=== PATIENT | male | born 2000 | race Caucasian/White ===

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

== ENCOUNTER 2021-03-31 09:19 | Observation (INO) | payer OTHER ==
--- NOTE | 2021-03-31 09:49 | ED ---
Chest Pain HPI - General Chief Complaint: Chest Pain Stated Complaint: Chest Pain/Recheck Time Seen by Provider: 03/31/21 09:37 Source: patient, RN notes reviewed Mode of arrival: ambulatory Limitations: no limitations - History of Present Illness Initial Comments: Patient is a 20-year-old male presented to the ER for chief complaint of chest pain. Patient states pain started yesterday at 2:30 while sitting at work. Patient reports pain is constant and feels like a stabbing pain that is worsened by coughing. Patient denies any pain radiation up or down the arms or to back. Patient reports 5 month old history of spontaneous pneumothorax. Patient is well-appearing and in mild discomfort, with stable vitals. - Related Data Previous Rx's Medication Instructions Recorded Acetaminophen Tab [Tylenol] 650 mg PO Q6HR PRN tab 10/26/20 Allergies Allergy/AdvReac Type Severity Reaction Status Date / Time No Known Allergies Allergy Verified 03/31/21 09:23 Review of Systems ROS Statement: Those systems with pertinent positive or pertinent negative responses have been documented in the HPI. ROS Other: All systems not noted in ROS Statement are negative. Past Medical History Past Medical History: No Reported History History of Any Multi-Drug Resistant Organisms: None Reported Past Surgical History: Appendectomy Past Anesthesia/Blood Transfusion Reactions: No Reported Reaction Past Psychological History: No Psychological Hx Reported Smoking Status: Former smoker, Vaper Past Alcohol Use History: None Reported Past Drug Use History: None Reported, Marijuana - Past Family History Mother Family Medical History: Unable to Obtain General Exam Limitations: no limitations General appearance: alert, in no apparent distress Head exam: Present: atraumatic, normocephalic, normal inspection Eye exam: Present: normal appearance, PERRL, EOMI. Absent: scleral icterus, conjunctival injection, periorbital swelling ENT exam: Present: normal exam, mucous membranes moist Neck exam: Present: normal inspection. Absent: tenderness, meningismus, lymphadenopathy Respiratory exam: Present: normal lung sounds bilaterally. Absent: respiratory distress, wheezes, rales, rhonchi, stridor Cardiovascular Exam: Present: regular rate, normal rhythm, normal heart sounds GI/Abdominal exam: Present: soft, normal bowel sounds. Absent: distended, tenderness, guarding, rebound, rigid Rectal exam: Present: deferred Extremities exam: Present: normal inspection, full ROM, normal capillary refill. Absent: tenderness, pedal edema, joint swelling, calf tenderness Back exam: Present: normal inspection Neurological exam: Present: alert, oriented X3, CN II-XII intact Psychiatric exam: Present: normal affect, normal mood Skin exam: Present: warm, dry, intact, normal color. Absent: rash Course Vital Signs 03/31/21 09:25 Temperature 98 F Pulse Rate 78 Respiratory 18 Rate Blood Pressure 132/82 O2 Sat by Pulse 96 Oximetry Chest Pain MDM - MDM X-ray shows evidence of pneumothorax I did discuss case with the radiologist, CT was obtained shows pneumothorax. Patient will be admitted for cardiothoracic surgery as she seen in the past. Disposition Clinical Impression: Spontaneous pneumothorax Disposition: ADMITTED IP TO THIS HOSP Condition: Fair Referrals: Rochelle Leslie MD [Primary Care Provider] - 1-2 days
--- NOTE | 2021-03-31 10:39 | XR ---
EXAMINATION TYPE: XR chest 2V DATE OF EXAM: 03/31/2021 COMPARISON: 10/29/2020 INDICATION: Pain TECHNIQUE: Frontal and lateral views of the chest are obtained. FINDINGS: The heart size is normal. The pulmonary vasculature is normal. The lungs are clear. No recurrent pneumothorax is evident. IMPRESSION: 1. No acute pulmonary process.
[2021-03-31] MEDS ORDERED: NALOXONE 0.4 MG/ML 1 ML VIAL IV PRN (11:05)
--- NOTE | 2021-03-31 11:14 | CT ---
EXAMINATION TYPE: CT chest wo con DATE OF EXAM: 03/31/2021 COMPARISON: 10/24/2020 HISTORY: abnormal CXR, pneumothorax, CT DLP: 310.3 mGycm, Automated exposure control for dose reduction was used. CONTRAST: Performed injected with 0 mL of Isovue 300. TECHNIQUE: Axial images were obtained at 5 mm thick sections. Reconstructed images are reviewed on Xetal computer in the coronal plane. FINDINGS: Portion of the thyroid visualized is normal. No suspicious lung nodules or focal infiltrates are present. There is a small pneumothorax present. Small crescent can be identified adjacent to the diaphragm lat eral at the right lung base. Additionally, some minimal right apical pneumothorax is evident. No enlarged mediastinal or hilar adenopathy is evident. The ascending aorta diameter at the level o f the main pulmonary artery is 2.8 cm. The main pulmonary artery diameter at the bifurcation is 2.[address] sections are obtained through the upper abdomen. Abdomen is essentially unremarkable. IMPRESSIONS: 1. Very minimal pneumothorax estimated at less than 10%. This resides at both the right lung base and right apex.
--- NOTE | 2021-03-31 13:51 | P.GSCN ---
History of Present Illness Consult date: 03/31/21 Reason for Consult: right spontaneous pneumothorax Requesting physician: Donald Harvey History of present illness: This is a 20-year-old active young man who follows on an outpatient basis with Dr. Leslie for primary care. He has a previous medical history of right spontaneous pneumothorax s/p thoravent placement in 10/2020, previous vaping use and continued occasional tobacco use, tonsillectomy, appendectomy, and occasional marijuana use. We evaluated and treated this young man in October with monitoring and subsequent removal of thoravent. At that time we discussed the potential for thracoscopic stapling of any air leak and mechanical pleurodesis if he should have a return of his pneumothorax due to the potential for the pneumothorax to keep recurring. He has been recovering at home without incident since until yesterday when he was about to leave work and had right sided chest pain with inspiration causing mild shortness of breath. He states it wasn't the same feeling as when he had his previous pneumothorax but he was concerned so he presented to [facility] Emergency room for evaluation and treatment. Chest x-ray demonstrated small less than 20% right-sided pneumothorax. CT of the chest demonstrated less than 10% apical and basilar pneumothorax. The patient is currently in no distress, oxygenating in the high 90s on room air. Consultation was placed to cardiothoracic surgery for recommendations as the patient is well known to our services. Review of Systems ROS was completed and was negative except as noted. - Respiratory Reports as per HPI, Reports pain on inspiration Past Medical History Additional Past Medical History / Comment(s): spontaneous right sided pneumothorax 10/2020 History of Any Multi-Drug Resistant Organisms: None Reported Past Surgical History: Appendectomy Past Anesthesia/Blood Transfusion Reactions: No Reported Reaction Past Psychological History: No Psychological Hx Reported Smoking Status: Current some day smoker, Vaper Past Alcohol Use History: None Reported Past Drug Use History: None Reported, Marijuana Additional History: quit vaping, admits to still having the occasional cigarette - Past Family History Mother Family Medical History: Unable to Obtain Medications and Allergies Home Medications Medication Instructions Recorded Confirmed Type Multivitamins, Thera [Multivitamin 1 tab PO DAILY 03/31/21 03/31/21 History (formulary)] Allergies Allergy/AdvReac Type Severity Reaction Status Date / Time No Known Allergies Allergy Verified 03/31/21 11:08 Surgical - Exam Vital Signs Temp Pulse Resp BP Pulse Ox 98 F 78 18 132/82 96 03/31/21 09:25 03/31/21 09:25 03/31/21 09:25 03/31/21 09:25 03/31/21 09:25 CONSTITUTIONAL: Awake and alert, appears comfortable, cooperative, well- developed, well-nourished, some pain with coughing, no acute distress EYES: Pupils equal, round, reactive to light, normal ocular movement ENT: Moist mucous membranes without oral lesions present NECK: No masses, no bruits, trachea midline RESPIRATORY: Lungs sounds clear to auscultation bilaterally. Respirations even, nonlabored. Currently on room air with oxygen saturation 98%. No chest wall deformities. No clubbing or cyanosis present. CARDIOVASCULAR: S1, S2 present. Regular rate and rhythm. Palpable peripheral pulses bilaterally. No edema present. No calf pain or tenderness noted. GASTROINTESTINAL: Abdomen soft, nontender, nondistended without masses or organomegaly noted. There is no rebound or guarding present. Active bowel sounds present 4 quadrants. GENITOURINARY: Deferred INTEGUMENTARY: Skin is warm and dry with evidence of good perfusion. NEUROLOGIC: Cranial nerves II through XII intact, normal coordination, no obvious motor or sensory deficits, speech is normal MUSKULOSKELETAL: Able to move all extremities, strength equal bilaterally, normal posture PSYCHIATRIC: Alert and oriented to person place and time, appropriate affect, intact judgment and insight Results - Imaging Chest x-ray: report reviewed, image reviewed CT scan - chest: report reviewed, image reviewed Assessment and Plan Assessment: 1. Spontaneous right-sided pneumothorax, recurrence vs. lack of complete resolution from 10/2020 2. Occasional cigarette use 3. Previous vaping use 4. Occasional marijuana use Plan: The patient was seen and examined at bedside in the ER with Dr. Dolan. Chart/diagnostics reviewed, films were reviewed with Dr. Dolan. The patient does complain of some pain with deep inspiration and cough, but he is in no distress and oxygenating well on room air. Incentive spirometry will be ordered and encouraged. The evolution of spontaneous pneumothorax was again discussed with the patient, discussed after primary occurrence patient has increased risk for second occurrence, but it is unclear if this is a recurrence vs. incomplete healing of the original occurrence. We will obtain follow up CXR in the [facility], further decision to be made regarding treatment, we did discuss surgery but left the decision to the patient. The patient was encouraged to stop smoking completely. Pain control with current medication regimen. Patient should increase activity, ambulate as tolerated. More recommendations to follow. Thank you for this consult. We will continue to follow. Time with Patient: Greater than 30
--- NOTE | 2021-03-31 14:04 | P.HPIM ---
History of Present Illness This is a pleasant 20 years old male with past medical history of spontaneous right sided pneumothorax 10/2020 Presents with chest pain of the right lower chest, nonradiating started last evening about 8/10 for like sharp with little dry cough but no dyspnea or phlegm He admits smoking many months ago but stopped now, no alcohol drinking or illicit tracts as per patient He denies any GI or urinary complaints. No dizziness or palpitation Vitals are stable and he is saturating 96% on room air No labs done Coronary over nondetected Chest x-ray: CT of the chest very minimal pneumothorax estimated at less than 10%. This resides at both the right lung base and right affix EKG showing normal sinus rhythm at 70 bpm with no significant ST-T changes Review of Systems CONSTITUTIONAL: No fever, no malaise, no fatigue. HEENT: No recent visual problems or hearing problems. Denied any sore throat. CARDIOVASCULAR: No orthopnea, PND, no palpitations, no syncope. PULMONARY: No shortness of breath, no cough, no hemoptysis. GASTROINTESTINAL: No diarrhea, no nausea, no vomiting, no abdominal pain. Normoactive bowel sounds. NEUROLOGICAL: No headaches, no weakness, no numbness. HEMATOLOGICAL: Denies any bleeding or petechiae. GENITOURINARY: Denies any burning micturition, frequency, or urgency. MUSCULOSKELETAL/RHEUMATOLOGICAL: Denies any joint pain, swelling, or any muscle pain. ENDOCRINE: Denies any polyuria or polydipsia. Past Medical History Past Medical History: No Reported History Additional Past Medical History / Comment(s): spontaneous right sided pneumothorax 10/2020 History of Any Multi-Drug Resistant Organisms: None Reported Past Surgical History: Appendectomy Past Anesthesia/Blood Transfusion Reactions: No Reported Reaction Past Psychological History: No Psychological Hx Reported Smoking Status: Current some day smoker, Vaper Past Alcohol Use History: None Reported Past Drug Use History: None Reported, Marijuana - Past Family History Mother Family Medical History: Unable to Obtain Medications and Allergies Home Medications Medication Instructions Recorded Confirmed Type Multivitamins, Thera [Multivitamin 1 tab PO DAILY 03/31/21 03/31/21 History (formulary)] Allergies Allergy/AdvReac Type Severity Reaction Status Date / Time No Known Allergies Allergy Verified 03/31/21 11:08 Physical Exam Vitals: Vital Signs Temp Pulse Resp BP Pulse Ox 03/31/21 11:40 70 16 149/75 98 03/31/21 09:25 98 F 78 18 132/82 96 Intake and Output 03/30/21 03/31/21 03/31/21 22:59 06:59 14:59 Other: Weight 71.214 kg GENERAL: The patient is alert and oriented x3, not in any acute distress. Well developed, well nourished. HEENT: Pupils are round and equally reacting to light. EOMI. No scleral icterus. No conjunctival pallor. Normocephalic, atraumatic. No pharyngeal erythema. No thyromegaly. CARDIOVASCULAR: S1 and S2 present. No murmurs, rubs, or gallops. PULMONARY: Chest is clear to auscultation, no wheezing or crackles. ABDOMEN: Soft, nontender, nondistended, normoactive bowel sounds. No palpable organomegaly. MUSCULOSKELETAL: No joint swelling or deformity. EXTREMITIES: No cyanosis, clubbing, or pedal edema. NEUROLOGICAL: Gross neurological examination did not reveal any focal deficits. SKIN: No rashes. No petechiae Assessment and Plan Assessment: Recurrent versus incomplete resolution of right apical and base spontaneous right sided pneumothorax , Estimated less than 10% Plan: This is a pleasant 20 years old male who presents with recurrent versus incomplete resolution of right pneumothorax cardiothoracic surgery team on the case for recommended to monitor with repeat chest x-ray in the morning encouraged to stop smoking Labs and medication were reviewed.. Continue same treatment. Continue with symptomatic treatment. Resume home medication. Monitor lytes and vitals. DVT and GI prophylaxis. Further recommendations depends on the clinical course of the patient DVT prophylaxis: Subcutaneous heparin GI Prophylaxis: Pepcid
[2021-03-31 17:35] VITALS: RESP 18
[2021-03-31] MEDS: HYDROcodone/APAP 5-325MG 1 EACH TAB PO PRN (17:36)
[2021-04-01] MEDS: HYDROcodone/APAP 5-325MG 1 EACH TAB PO PRN (06:59)
[2021-04-01 08:04] VITALS: PULSE 61; TEMP 97.7
[2021-04-01 08:07] VITALS: BP 113/66
--- NOTE | 2021-04-01 08:15 | XR ---
EXAMINATION TYPE: XR chest 2V DATE OF EXAM: 04/01/2021 COMPARISON: 03/31/2021 HISTORY: Pneumothorax follow-up TECHNIQUE: Frontal and lateral views of the chest are obtained. FINDINGS: There is no focal air space opacity. Right-sided pneumothorax persists although is much smaller in size and is estimated at less than 5%. The cardiac silhouette size is within normal limits. The osseous structures are grossly intact. IMPRESSION: 1. Right-sided pneumothorax persists although is much smaller in size and is estimated at less than 5%.
--- NOTE | 2021-04-01 08:34 | P.PN ---
Subjective Progress Note Date: 04/01/21 Principal diagnosis: Spontaneous right-sided pneumothorax, recurrence vs. lack of complete resolution from 10/2020. History of occasional cigarette use, previous vaping use, occasional marijuana use The patient was seen and examined this morning sitting up in bed in no acute dis tress. Denies current pain or shortness of breath. Oxygenating in the high 90s on room air. Able to achieve 3500 mL on his incentive spirometer. Chest x-ray reviewed, stable. Patient was asked if he wanted surgery which we can do tomorrow morning, he declined at this time. We will see patient in the office next week with chest x-ray to be completed prior to appointment. Objective - Vital Signs Vital signs: Vital Signs Temp 97.7 F 04/01/21 07:00 Pulse 61 04/01/21 07:00 Resp 18 04/01/21 07:00 BP 113/66 04/01/21 08:04 Pulse Ox 99 04/01/21 07:00 Intake & Output 03/31/21 04/01/21 04/01/21 18:59 06:59 18:59 Weight 71.214 kg Other: Voiding Method Toilet # Voids 2 - Exam CONSTITUTIONAL: Appears comfortable, cooperative, no acute distress RESPIRATORY: Lungs sounds clear bilaterally. Respirations even, nonlabored. Currently on room air with oxygen saturation 99%. Able to achieve 3500 mL on incentive spirometry. Strong cough. CARDIOVASCULAR: S1, S2 present. Regular rate and rhythm. Palpable peripheral pulses bilaterally. No edema present. No calf pain or tenderness noted. . GASTROINTESTINAL: Abdomen soft, nontender, nondistended. Active bowel sounds present 4 quadrants. Tolerating diet. GENITOURINARY: Continues to void clear, yellow urine INTEGUMENTARY: Skin is warm and dry with evidence of good perfusion. NEUROLOGIC: Cranial nerves II through XII intact MUSKULOSKELETAL: Able to move all extremities, strength equal bilaterally, gait normal PSYCHIATRIC: Alert and oriented to person place and time, appropriate affect, intact judgment and insight - Allied health notes Allied health notes reviewed: nursing - Imaging and Cardiology Chest x-ray: report reviewed, image reviewed Assessment and Plan Assessment: 1. Spontaneous right-sided pneumothorax, recurrence vs. lack of complete resolution from 10/2020 2. Occasional cigarette use 3. Previous vaping use 4. Occasional marijuana use Plan: 1. From our standpoint the patient can be discharged to home to follow-up with Dr. Dolan in the office next with chest x-ray to be completed prior to appointment 2. Encourage continued incentive spirometry use 3. Encourage cessation of all smoking as this increases his risk for recurrence 4. Pain control with current medication regimen 5. Increase activity as tolerated 6. No surgical intervention at this time per patient preference Time with Patient: Greater than 30
[2021-04-01] MEDS ORDERED: FAMOTIDINE 20 MG TAB PO SCH (09:00)
[2021-04-01] MEDS ORDERED: ENOXAPARIN 30 MG/0.3 ML SYRINGE SQ SCH (09:00)
== END 2021-04-01 13:12 | disposition home or self-care (01) ==
LOC: EC 09:19 → 6NMEDSUR 11:39
PROVIDERS: ADMIT Internal Medicine; ATTEND Internal Medicine
DX: J93.83 Other pneumothorax (principal); F17.210 Nicotine dependence, cigarettes, uncomplicated; Z90.49 Acquired absence of other specified parts of digestive tract; Z20.822 Contact with and (suspected) exposure to COVID-19
CPT/HCPCS: 96372; 99285; 93005; 87635; 71046 ×2; 71250; G0378 ×2; J1650

== ENCOUNTER → 2021-04-08 | Outpatient (CLI) | payer OTHER ==
--- NOTE | 2021-04-08 12:07 | XR ---
EXAMINATION TYPE: XR chest 2V DATE OF EXAM: 04/08/2021 COMPARISON: Chest x-ray April 01, 2021. CT chest March 31, 2021 HISTORY: Right-sided pneumothorax. TECHNIQUE: Frontal and lateral views of the chest are obtained. FINDINGS: Underlying emphysematous changes redemonstrated interval resolution of right sided tiny ap ical pneumothorax. Lungs remain clear. The cardiac silhouette size remains within normal limits. Th e osseous structures are intact. IMPRESSION: Interval resolution of tiny right apical pneumothorax.
== END | disposition home or self-care (01) ==
LOC: RADXRMAIN 11:45
PROVIDERS: ATTEND Nurse Practitioner Acute Care
DX: J93.9 Pneumothorax, unspecified (principal)
CPT/HCPCS: 71046

== ENCOUNTER 2022-12-12 21:30 | Emergency (ER) | payer OTHER ==
--- NOTE | 2022-12-12 21:56 | ED ---
Chest Pain HPI - General Source: RN notes reviewed <Veronica Santana - Last Filed: 12/12/22 21:55> <Servando Guan - Last Filed: 12/13/22 00:36> - General Stated Complaint: Diff Breathing, Chest Pain, Previous Pneumothorax Time Seen by Provider: 12/12/22 21:55 - History of Present Illness Initial Comments: Patient is a 22-year-old male presents the emergency department for chest pain and shortness of breath. Started yesterday. Patient has history of pneumothorax. States this feels similar. (Veronica Santana) This is a 22-year-old male with a past medical history including previous spontaneous pneumothorax presented to the emergency department for right-sided chest pain. The patient stated that he felt pain to the right side of the chest and stated that it felt worse with movement similar to the pain that he felt when he had a spontaneous pneumothorax. The patient came right to the emergency department for evaluation. The patient did report that he started vaping once again this past week but had stopped over the last 2 years. The patient denied any shortness of breath or any active chest pain but stated that the pain is worse with deep breathing or moving. 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 The patient denied any other acute pain or complaints at this time. (Servando Guan) - Related Data Allergies Allergy/AdvReac Type Severity Reaction Status Date / Time No Known Allergies Allergy Verified 03/31/21 11:08 Review of Systems ROS Other: All systems not noted in ROS Statement are negative. <Veronica Santana - Last Filed: 12/12/22 21:55> ROS Other: All systems not noted in ROS Statement are negative. <Servando Guan - Last Filed: 12/13/22 00:36> ROS Statement: Those systems with pertinent positive or pertinent negative responses have been documented in the HPI. EKG Findings - EKG Comments: EKG Findings:: An EKG was obtained and was interpreted by myself showing a rate of 71, MD interval 135, QRS duration 95 and QTC of 383. This EKG showed a normal sinus rhythm with no ST segment elevation or depression noted. <Servando Guan - Last Filed: 12/13/22 00:36> Past Medical History Past Medical History: No Reported History Additional Past Medical History / Comment(s): spontaneous right sided pneumothorax 10/2020 History of Any Multi-Drug Resistant Organisms: None Reported Past Surgical History: Appendectomy Past Anesthesia/Blood Transfusion Reactions: No Reported Reaction Past Psychological History: No Psychological Hx Reported Smoking Status: Current some day smoker, Vaper Past Alcohol Use History: None Reported Past Drug Use History: None Reported, Marijuana - Past Family History Mother Family Medical History: Unable to Obtain <Veronica Santana - Last Filed: 12/12/22 21:55> General Exam <Veronica Santana - Last Filed: 12/12/22 21:55> Limitations: no limitations General appearance: alert, in no apparent distress Head exam: Present: atraumatic, normocephalic, normal inspection Eye exam: Present: normal appearance, PERRL Pupils: Present: normal accommodation ENT exam: Present: normal exam, normal oropharynx, mucous membranes moist Neck exam: Present: normal inspection, full ROM Respiratory exam: Present: normal lung sounds bilaterally, chest wall tenderness (TTP over the anterior right chest wall) Cardiovascular Exam: Present: regular rate, normal rhythm, normal heart sounds GI/Abdominal exam: Present: soft, normal bowel sounds Extremities exam: Present: normal inspection, full ROM Back exam: Present: normal inspection, full ROM Neurological exam: Present: alert, oriented X3, CN II-XII intact Psychiatric exam: Present: normal affect, normal mood Skin exam: Present: warm, dry <Servando Guan - Last Filed: 12/13/22 00:36> - General Exam Comments Initial Comments: Visual Physical Exam Vital signs reviewed General: Well-appearing, nontoxic, no acute distress. Head: Normocephalic, atraumatic Eyes: PERRLA, EOMI ENT: Airway patent Chest: Nonlabored breathing Skin: No visual rash, normal skin tone Neuro: Alert and oriented 3 Musculoskeletal: No gross abnormalities (Veronica Santana) Course Vital Signs 12/12/22 12/12/22 21:52 23:45 Pulse Rate 69 58 L Respiratory 16 16 Rate Blood Pressure 125/86 126/82 O2 Sat by Pulse 99 100 Oximetry Chest Pain MDM <Servando Guan - Last Filed: 12/13/22 00:36> - MDM Was pt. sent in by a medical professional or institution (Dr., PA, LICENSED MENTAL HEALTH COUNSELOR, urgent care, hospital, or jail...) When possible be specific @ -No Did you speak to anyone other than the patient for history (EMS, parent, family, police, friend...)? What history was obtained from this source @ -No Did you review nursing and triage notes (agree or disagree)? Why? @ -I reviewed and agree with nursing and triage notes Were old charts reviewed (outside hosp., previous admission, EMS record, old EKG, old radiological studies, urgent care reports/EKG's, jail records)? Report findings @ -No old charts were reviewed Differential Diagnosis (chest pain, altered mental status, abdominal pain women, abdominal pain men, vaginal bleeding, weakness, fever, dyspnea, syncope, headache, dizziness, GI bleed, back pain, seizure, CVA, palpatations, mental health)? @ -Pneumothorax, chest wall muscle strain, ACS EKG interpreted by me (3pts min.). @ -As above X-rays interpreted by me (1pt min.). @ -Chest x-ray was obtained was interpreted by myself showing no acute process. CT interpreted by me (1pt min.). @ -None done U/S interpreted by me (1pt. min.). @ -None done What testing was considered but not performed or refused? (CT, X-rays, U/S, labs)? Why? @ -None What meds were considered but not given or refused? Why? @ -None Did you discuss the management of the patient with other professionals (professionals i.e. , PA, LICENSED MENTAL HEALTH COUNSELOR, lab, RT, psych nurse, social media marketer, spreader box operator, teacher, bsa officer, welfare case worker)? Give summary @ -No Was smoking cessation discussed for >3mins.? @ -Yes Was critical care preformed (if so, how long)? @ -No Were there social determinants of health that impacted care today? How? (Homelessness, low income, unemployed, alcoholism, drug addiction, transportation, low edu. Level, literacy, decrease access to med. care, prison, rehab)? @ -No Was there de-escalation of care discussed even if they declined (Discuss DNR or withdrawal of care, Hospice)? DNR status @ -No What co-morbidities impacted this encounter? (DM, HTN, Smoking, COPD, CAD, Cancer, CVA, ARF, Chemo, Hep., AIDS, mental health diagnosis, sleep apnea, morbid obesity)? @ -Previous spontaneous pneumothorax Was patient admitted / discharged? Hospital course, mention meds given and route, prescriptions, significant lab abnormalities, going to OR and other pe rtinent info. @ -The patient was seen and evaluated emergency department. Physical exam, the patient was resting in bed without any acute distress. Vital signs admission were stable. Due to the nature the patient's complaints, laboratory workup was obtained as is a chest x-ray. All laboratory workup and chest x-ray was negative. The patient had reproducibility of pain to palpation on the right anterior chest wall likely secondary to a chest wall muscle strain. The patient was stable for discharge home and told to continue to monitor symptoms and report back to the emergency department acute worsening symptoms. The patient was also given a dose of Toradol in the emergency department. The patient was agreeable to this and all his questions were answered. The patient was discharged home in stable condition. Undiagnosed new problem with uncertain prognosis? @ -No Drug Therapy requiring intensive monitoring for toxicity (Heparin, Nitro, Insulin, Cardizem)? @ -No Were any procedures done? @ -No Diagnosis/symptom? @ -Chest wall muscle strain Acute, or Chronic, or Acute on Chronic? @ -Acute Uncomplicated (without systemic symptoms) or Complicated (systemic symptoms)? @ -Uncomplicated Side effects of treatment? @ -No Exacerbation, Progression, or Severe Exacerbation? @ -No Poses a threat to life or bodily function? How? (Chest pain, [place], [place], pneumonia, PE, COPD, DKA, ARF, appy, cholecystitis, CVA, Diverticulitis, Homicidal, Suicidal, threat to staff... and all critical care pts) @ -No (Servando Guan) Disposition <Veronica Santana - Last Filed: 12/12/22 21:55> Is patient prescribed a controlled substance at d/c from ED?: No Time of Disposition: 00:05 <Servando Guan - Last Filed: 12/13/22 00:36> Clinical Impression: Chest wall muscle strain Disposition: HOME SELF-CARE Condition: Stable Instructions (If sedation given, give patient instructions): Chest Wall Pain (ED) Referrals: Rochelle Leslie MD [Primary Care Provider] - 1-2 days
--- NOTE | 2022-12-12 22:16 | XR ---
EXAM: XR Chest, 2 Views CLINICAL HISTORY: ITS.REASON XR Reason: Chest Pain TECHNIQUE: Frontal and lateral views of the chest. COMPARISON: No relevant prior studies available. FINDINGS: Lungs: Unremarkable. No consolidation. Pleural space: Unremarkable. No pneumothorax. Heart: Unremarkable. No cardiomegaly. Mediastinum: Unremarkable. Bones/joints: Unremarkable. IMPRESSION: Normal chest x-rays.
[2022-12-12 23:07] LABS: Basophils % (A) 0 %; Eosinophils # (A) 0.1 k/uL (0-0.7); Eosinophils % (A) 1 %; HCT 42.9 % (39.0-53.0); HGB 15.4 gm/dL (13.0-17.5); Lymphocytes # (A) 2.3 k/uL (1.0-4.8); Lymphocytes % (A) 28 %; MCH 30.3 pg (25.0-35.0); MCHC 35.9 g/dL (31.0-37.0); MCV 84.3 fL (80.0-100.0); Mean Platelet Volume 7.7; Monocytes # (A) 0.5 k/uL (0-1.0); Monocytes % (A) 6 %; Neutrophils # (A) 5.2 k/uL (1.3-7.7); Neutrophils % (A) 63 %; Platelet Count 250 k/uL (150-450); RBC 5.08 m/uL (4.30-5.90); WBC 8.2 k/uL (3.8-10.6)
[2022-12-12 23:13] LABS: ALT 19 U/L (4-49); AST 23 U/L (17-59); African American GFR (CKD) >90 (>60 ml/min/1.73 sqM); Albumin 4.5 g/dL (3.5-5.0); Alkaline Phosphatase 61 U/L (38-126); Anion Gap 9 mmol/L; Blood Urea Nitrogen 12 mg/dL (9-20); Calcium 9.3 mg/dL (8.4-10.2); Carbon Dioxide 28 mmol/L (22-30); Chloride 104 mmol/L (98-107); Glucose 79 mg/dL (74-99); Non-African American GFR(CKD) >90 (>60 ml/min/1.73 sqM); Potassium 3.7 mmol/L (3.5-5.1); Sodium 141 mmol/L (137-145); Total Bilirubin 0.6 mg/dL (0.2-1.3); Total Protein 7.5 g/dL (6.3-8.2)
[2022-12-12 23:15] LABS: INR 0.9 (<1.2); Partial Thromboplastin Time 25.8 sec (22.0-30.0); Prothrombin Time 10.1 sec (9.0-12.0)
[2022-12-13] MEDS ORDERED: KETOROLAC 15 MG/ML 1 ML VIAL IM STA (00:14)
[2022-12-13 00:42] VITALS: BP 121/80; PULSE 64
[2022-12-13 00:54] VITALS: RESP 16
== END 2022-12-13 00:54 | disposition home or self-care (01) ==
LOC: EC 21:30
DX: S29.011A Strain of muscle and tendon of front wall of thorax, initial encounter (principal); F17.290 Nicotine dependence, other tobacco product, uncomplicated; F12.90 Cannabis use, unspecified, uncomplicated; X58.XXXA Exposure to other specified factors, initial encounter
CPT/HCPCS: 36415; 71046; 80053; 83735; 84484; 85025; 85610; 85730; 93005; 96372; 99285

== ENCOUNTER 2024-05-04 00:14 | Inpatient (IN) | payer OTHER ==
--- NOTE | 2024-05-04 00:57 | ED ---
General Adult HPI - General Chief complaint: Shortness of Breath Stated complaint: Pnuemothorax Time Seen by Provider: 05/04/24 00:35 Source: patient Mode of arrival: ambulatory - History of Present Illness Initial comments: Patient is a 23-year-old male with a past medical history of spontaneous pneumothorax presenting today for sudden onset right sided chest pain. Patient states he was playing a video game, felt his heart start to race and felt sudden onset right sided chest pressure. Feels like is hard to take a deep breath and has pain with deep breathing. States that this pain is different from when he had prior spontaneous pneumothorax. Denies smoking or vaping. Denies history of prior PE. States he does have a dry cough but no hemoptysis or production of sputum. No fevers or chills. No family history of sudden cardiac , ACS or CVA. Patient has no history of cancer no recent travel surgery or hospitalizations. Pain is nonradiating. Denies abdominal pain nausea, vomiting, diaphoresis. - Related Data Allergies Allergy/AdvReac Type Severity Reaction Status Date / Time No Known Allergies Allergy Verified 05/04/24 00:17 Review of Systems ROS Statement: Those systems with pertinent positive or pertinent negative responses have been documented in the HPI. ROS Other: All systems not noted in ROS Statement are negative. Past Medical History Past Medical History: No Reported History Additional Past Medical History / Comment(s): spontaneous right sided pneumotho rax 10/2020 History of Any Multi-Drug Resistant Organisms: None Reported Past Surgical History: Appendectomy Past Anesthesia/Blood Transfusion Reactions: No Reported Reaction Past Psychological History: No Psychological Hx Reported Smoking Status: Former smoker Past Alcohol Use History: Occasional Past Drug Use History: Marijuana - Past Family History Mother Family Medical History: Unable to Obtain General Exam - General Exam Comments Initial Comments: PE: CONSTITUTIONAL: No apparent distress, well appearing SKIN: Warm, dry, no jaundice, hives or petechiae EYES: Pupils are equally round, extraocular movements intact without nystagmus, clear conjunctiva, non-icteric sclera HENT: Normocephalic, atraumatic, moist mucus membranes, oropharynx clear without exudates NECK: , Full range of motion, normal appearance PULMONARY: Clear to auscultation without wheezes, rhonchi, or rales, normal excursion, no accessory muscle use and no stridor CARDIOVASCULAR: Regular rate, rhythm, normal S1 and S2. No appreciated murmurs, rubs or gallops. Strong radial pulses with intact distal perfusion. No lower extremity edema GASTROINTESTINAL: Soft, active bowel sounds throughout, non-tender, non- distended, no palpable masses, no rebound or guarding. No hepatosplenomegaly MUSCULOSKELETAL: Extremities have no gross deformity, no edema, redness, or swelling. No calf swelling NEUROLOGIC:_a/o x 3, GCS 15, normal mentation and speech. Moves all extremities x 4 without motor or sensory deficit PSYCHIATRIC:_normal mood and affect, thought process is clear and linear Course Vital Signs 05/04/24 05/04/24 05/04/24 00:15 01:45 01:55 Temperature 98.6 F Pulse Rate 87 64 64 Respiratory 18 18 18 Rate Blood Pressure 136/90 137/90 137/90 O2 Sat by Pulse 97 100 100 Oximetry 05/04/24 05/04/24 05/04/24 02:00 02:05 02:10 Temperature Pulse Rate 80 80 77 Respiratory 19 20 18 Rate Blood Pressure 109/66 115/60 113/67 O2 Sat by Pulse 100 100 100 Oximetry 05/04/24 05/04/24 05/04/24 02:15 02:30 02:45 Temperature Pulse Rate 70 66 56 L Respiratory 19 18 16 Rate Blood Pressure 112/68 133/93 117/71 O2 Sat by Pulse 99 100 100 Oximetry 05/04/24 05/04/24 05/04/24 03:00 03:30 04:00 Temperature Pulse Rate 65 65 58 L Respiratory 16 16 16 Rate Blood Pressure 120/74 120/82 119/79 O2 Sat by Pulse 100 100 100 Oximetry 05/04/24 04:39 Temperature 97.5 F L Pulse Rate 72 Respiratory 16 Rate Blood Pressure 116/72 O2 Sat by Pulse 100 Oximetry EKG Findings - EKG Comments: EKG Findings:: Sinus rhythm, rate 63 bpm, [place] interval 154 ms, QT/QTc 354/362 ms, QRS duration 99 ms, normal axis, no ST elevations or depressions Procedures - Chest Tube Insertion Consent Obtained: verbal consent Side of Procedure: right Indication: Pneumothorax Placed on monitor/pulse oximetry: Yes Site Prep: Chloroprep Local Anesthesia: Lidocaine 1% Amount (mLs): 3 Insertion Site: Other (2nd intercostal place midclavicular line) Scalpel: #11 Tube Size (Kyrgyz): Other (thoravent) Returns: Air Sutured in Place: No (adhesive wings applied) Attached to Suction: Yes Type of Suction: Pleuravac Repeat X-ray Results: Lung Inflated Patient Tolerated Procedure: well - Procedural Sedation *Procedural Sedation Start Time: 01:55 *Procedural Sedation Stop Time: 02:10 *Risks,benefits, and alternative therapies discussed?: Yes *Patient indicates understanding of risk/benefit discussion?: Yes *Indications: other (chest tube placement) *Previous Adverse Reaction to Anesthesia/Sedation?: No *ASA Class: I *Mallampati Airway Score: 1 *Time of Last PO Intake: 00:00 (emergent procedure ) Preparation: monitor worker applied, pulse oximeter, capnometry used, supplemental O2 applied, reversal agents at bedside, suction/airway equipment at bedside, IV secured Midazolam: IV Midazolam Dose: 2 IV Propofol Dose (mgs): 180 Complications: none Patient Tolerated Procedure: well (Post procedure patient painful but returned to baseline) Medical Decision Making - Medical Decision Making Was pt. sent in by a medical professional or institution (, PA, ASSISTANT TRACK COACH, urgent care, hospital, or half-way...) When possible be specific @ -No Did you speak to anyone other than the patient for history (EMS, parent, family, police, friend...)? What history was obtained from this source @ -No Did you review nursing and triage notes (agree or disagree)? Why? @ -I reviewed and agree with nursing and triage notes Were old charts reviewed (outside hosp., previous admission, EMS record, old EKG, old radiological studies, urgent care reports/EKG's, half-way records)? Report findings @Medical records reviewed, patient had presented in 2020 for similar presentation and had small spontaneous pneumothorax Differential Diagnosis (chest pain, altered mental status, abdominal pain women, abdominal pain men, vaginal bleeding, weakness, fever, dyspnea, syncope, headache, dizziness, GI bleed, back pain, seizure, CVA, palpatations, mental h ealth, musculoskeletal)? @Differential Dyspnea: Coronary syndrome, arrhythmia, tamponade, asthma, pneumonia, pneumothorax, pulmonary effusion, pulmonary contusion, anemia, neuromuscular, this is not meant to be an all-inclusive list. EKG interpreted by me (3pts min.). @ -As above X-rays interpreted by me (1pt min.). @Right pneumothorax on original Chest XR, on 1st repeat worsened pneumothorax, chest tube in appropriate position, on 2nd repeat improvement in pneumothorax, Chest tube in appropriate position CT interpreted by me (1pt min.). @ -None done U/S interpreted by me (1pt. min.). @ -None done What testing was considered but not performed or refused? (CT, X-rays, U/S, labs)? Why? @ -None What meds were considered but not given or refused? Why? @ -None Did you discuss the management of the patient with other professionals (professionals i.e. , PA, ASSISTANT TRACK COACH, lab, RT, psych nurse, clinical social work therapist, 3d specialist, teacher, police booking officer, case picker)? Give summary @ -No Was smoking cessation discussed for >3mins.? @ -No Was critical care preformed (if so, how long)? @ -No Were there social determinants of health that impacted care today? How? (Homelessness, low income, unemployed, alcoholism, drug addiction, transportation, low edu. Level, literacy, decrease access to med. care, [facility], rehab)? @ -No Was there de-escalation of care discussed even if they declined (Discuss DNR or withdrawal of care, Hospice)? @ -No What co-morbidities impacted this encounter? (DM, HTN, Smoking, COPD, CAD, Cancer, CVA, ARF, Chemo, Hep., AIDS, mental health diagnosis, sleep apnea, morbid obesity)? @ -None Was patient admitted / discharged? Hospital course, mention meds given and route, prescriptions, significant lab abnormalities, going to OR and other pertinent info. @ -Hospital course Admission- Pleasant 23-year-old previously healthy male presenting for sudden onset right- sided chest pain. Uncomfortable appearing though well-appearing and nontoxic on my assessment. Positive bilateral breath sounds, vital stable on arrival. 2+ radial pulses, skin pink well-appearing perfused. Plan for chest XR, basic labs, EKG, pain control. Pt agreeable with POC. Chest x-ray showed right-sided pneumothorax. Discussed with patient findings and plan for chest tube placement. Offered pain control versus moderate sedation. Patient elected for moderate sedation. Informed consent was obtained . Please see procedure note for further details. Thora vent placed. Patient tolerated procedure well. Initial repeat x-ray showed worsened pneumothorax however lower vent was connected to suction and repeat x-ray shortly afterwards showed reinflation of the lung. On my reassessment patient painful but in NAD. Ordered additional pain control. Patient admitted to [facility], Dr. Sheikh in stable condition. Undiagnosed new problem with uncertain prognosis? @ -No Drug Therapy requiring intensive monitoring for toxicity (Heparin, Nitro, Insulin, Cardizem)? @ -No Were any procedures done? @Chest tube Diagnosis/symptom? @ -Spontaneous pneumothorax Acute, or Chronic, or Acute on Chronic? @Acute Uncomplicated (without systemic symptoms) or Complicated (systemic symptoms)? @Complicated Side effects of treatment? @ -No Exacerbation, Progression, or Severe Exacerbation? @ -No Poses a threat to life or bodily function? How? (Chest pain, [place], [place], pneumonia, PE, COPD, DKA, ARF, appy, cholecystitis, CVA, Diverticulitis, Homicidal, Suicidal, threat to staff... and all critical care pts) @Yes - Lab Data Result diagrams: 05/04/24 00:40 05/04/24 00:40 Lab Results 05/04/24 05/04/24 05/04/24 Range/Units 00:40 00:40 00:40 WBC 10.0 (3.8-10.6) k/uL RBC 5.20 (4.30-5.90) m/uL Hgb 15.5 (13.0-17.5) gm/dL Hct 44.3 (39.0-53.0) % MCV 85.2 (80.0-100.0) fL MCH 29.7 (25.0-35.0) pg MCHC 34.9 (31.0-37.0) g/dL RDW 12.8 (11.5-15.5) % Plt Count 262 (150-450) k/uL MPV 7.0 Neutrophils % 65 % Lymphocytes % 26 % Monocytes % 6 % Eosinophils % 1 % Basophils % 0 % Neutrophils # 6.5 (1.3-7.7) k/uL Lymphocytes # 2.6 (1.0-4.8) k/uL Monocytes # 0.6 (0-1.0) k/uL Eosinophils # 0.1 (0-0.7) k/uL Basophils # 0.0 (0-0.2) k/uL PT 10.8 (10.0-12.5) sec INR 1.0 (<1.2) APTT 27.1 (22.0-30.0) sec Sodium 138 (137-145) mmol/L Potassium 4.0 (3.5-5.1) mmol/L Chloride 107 (98-107) mmol/L Carbon Dioxide 25 (22-30) mmol/L Anion Gap 6 mmol/L BUN 10 (9-20) mg/dL Creatinine 0.89 (0.66-1.25) mg/dL Est GFR (CKD-EPI)AfAm >90 (>60 ml/min/1.73 sqM) Est GFR (CKD-EPI)NonAf >90 (>60 ml/min/1.73 sqM) Glucose 102 H (74-99) mg/dL Calcium 9.5 (8.4-10.2) mg/dL Total Bilirubin 1.1 (0.2-1.3) mg/dL AST 37 (17-59) U/L ALT 28 (4-49) U/L Alkaline Phosphatase 67 (38-126) U/L Troponin I (0.000-0.034) ng/mL Total Protein 7.6 (6.3-8.2) g/dL Albumin 4.7 (3.5-5.0) g/dL 05/04/24 Range/Units 00:40 WBC (3.8-10.6) k/uL RBC (4.30-5.90) m/uL Hgb (13.0-17.5) gm/dL Hct (39.0-53.0) % MCV (80.0-100.0) fL MCH (25.0-35.0) pg MCHC (31.0-37.0) g/dL RDW (11.5-15.5) % Plt Count (150-450) k/uL MPV Neutrophils % % Lymphocytes % % Monocytes % % Eosinophils % % Basophils % % Neutrophils # (1.3-7.7) k/uL Lymphocytes # (1.0-4.8) k/uL Monocytes # (0-1.0) k/uL Eosinophils # (0-0.7) k/uL Basophils # (0-0.2) k/uL PT (10.0-12.5) sec INR (<1.2) APTT (22.0-30.0) sec Sodium (137-145) mmol/L Potassium (3.5-5.1) mmol/L Chloride (98-107) mmol/L Carbon Dioxide (22-30) mmol/L Anion Gap mmol/L BUN (9-20) mg/dL Creatinine (0.66-1.25) mg/dL Est GFR (CKD-EPI)AfAm (>60 ml/min/1.73 sqM) Est GFR (CKD-EPI)NonAf (>60 ml/min/1.73 sqM) Glucose (74-99) mg/dL Calcium (8.4-10.2) mg/dL Total Bilirubin (0.2-1.3) mg/dL AST (17-59) U/L ALT (4-49) U/L Alkaline Phosphatase (38-126) U/L Troponin I <0.012 (0.000-0.034) ng/mL Total Protein (6.3-8.2) g/dL Albumin (3.5-5.0) g/dL Disposition Clinical Impression: Spontaneous pneumothorax Disposition: ADMITTED IP TO THIS [facility] Condition: Good
[2024-05-04] MEDS: ONDANSETRON 4 MG/2 ML VIAL IVP STA (01:03)
[2024-05-04] MEDS: KETOROLAC 15 MG/ML 1 ML VIAL IVP STA (01:05)
[2024-05-04] MEDS: MORPHINE SULFATE 4 MG/ML SYRINGE IVP STA (01:06)
--- NOTE | 2024-05-04 01:11 | XR ---
EXAMINATION TYPE: XR chest 2V DATE OF EXAM: 05/04/2024 COMPARISON: Chest x-ray December 12, 2022 HISTORY: Difficulty breathing, right-sided pneumothorax? TECHNIQUE: Frontal and lateral views of the chest are obtained. FINDINGS: There is moderate right-sided pneumothorax estimated at 25-30%. No new mediastinal shift. Left lung is clear. Cardiac silhouette size stable and within normal limits. Osseous structures are i ntact. IMPRESSION: Confirmation of moderate size right-sided pneumothorax estimated 25-30% without mediasti nal shift. [facility], , 05/04/2024 1:08 AM
[2024-05-04 01:17] LABS: Basophils % (A) 0 %; Eosinophils # (A) 0.1 k/uL (0-0.7); Eosinophils % (A) 1 %; HCT 44.3 % (39.0-53.0); HGB 15.5 gm/dL (13.0-17.5); Lymphocytes # (A) 2.6 k/uL (1.0-4.8); Lymphocytes % (A) 26 %; MCH 29.7 pg (25.0-35.0); MCHC 34.9 g/dL (31.0-37.0); MCV 85.2 fL (80.0-100.0); Monocytes # (A) 0.6 k/uL (0-1.0); Monocytes % (A) 6 %; Neutrophils # (A) 6.5 k/uL (1.3-7.7); Neutrophils % (A) 65 %; Platelet Count 262 k/uL (150-450); RDW 12.8 % (11.5-15.5)
[2024-05-04 01:29] LABS: ALT 28 U/L (4-49); AST 37 U/L (17-59); African American GFR (CKD) >90 (>60 ml/min/1.73 sqM); Albumin 4.7 g/dL (3.5-5.0); Alkaline Phosphatase 67 U/L (38-126); Anion Gap 6 mmol/L; Blood Urea Nitrogen 10 mg/dL (9-20); Calcium 9.5 mg/dL (8.4-10.2); Carbon Dioxide 25 mmol/L (22-30); Chloride 107 mmol/L (98-107); Glucose 102 mg/dL (74-99); Non-African American GFR(CKD) >90 (>60 ml/min/1.73 sqM); Sodium 138 mmol/L (137-145); Total Bilirubin 1.1 mg/dL (0.2-1.3); Total Protein 7.6 g/dL (6.3-8.2)
[2024-05-04] MEDS: MIDAZOLAM 2 MG/2 ML VIAL IV ONE (01:46)
[2024-05-04 01:47] LABS: Partial Thromboplastin Time 27.1 sec (22.0-30.0); Prothrombin Time 10.8 sec (10.0-12.5)
[2024-05-04] MEDS: PROPOFOL 10 MG/ML 20 ML VIAL IV ONE (01:51)
[2024-05-04] MEDS: LIDOCAINE 1% INJ 10MG/ML (20 ML MDV) SQ ONE (01:55)
[2024-05-04] MEDS: fentaNYL (PF) 50 MCG/ML 2 ML AMP IVP ONE (02:40)
--- NOTE | 2024-05-04 03:28 | XR ---
EXAM: XR Chest, 1 View CLINICAL HISTORY: confirm Chest Tube placement TECHNIQUE: Frontal view of the chest. COMPARISON: 04/08/21 FINDINGS: Lungs: Unremarkable. No consolidation. Pleural space: Large right pneumothorax with more than 70% loss in volume. Mediastinum: Associated mild mediastinal shift to the left. Bones/joints: No acute findings. Tubes, lines and devices: Lateral approaching upper chest catheter over lateral aspect of the chest cavity. IMPRESSION: 1. Large right pneumothorax with more than 70% loss in volume. 2. Associated mild mediastinal shift to the left. <MYCVCSECTION> Communications: 05/04/24 03:40 Verify Receipt Verified receipt with ER clerk Reddy for Dr. Gimenez on 05/04 03:40 (-04:00)
[2024-05-04] MEDS ORDERED: MAG HYDROX/AL HYDROX/SIMETH 30 ML CUP PO PRN (03:47)
[2024-05-04] MEDS ORDERED: NALOXONE 0.4 MG/ML 1 ML VIAL IV PRN (03:47)
[2024-05-04] MEDS ORDERED: HYDROmorphone 1 MG/ML 1 ML SYRINGE IVP PRN (03:47)
[2024-05-04] MEDS: LIDOCAINE 4% PATCH TOPICAL ONE (04:05)
--- NOTE | 2024-05-04 04:24 | XR ---
Exam: XR CXR 1 VIEW Comparison: About 1 hour 10 minutes ago Impression: Right apical pneumothorax with a bilateral 10-15% loss in height, markedly decreased. Right chest tube is similar in position. Right basilar airspace opacities, likely in lower lobe, likely represent atelectasis versus reexpansion edema. Pneumonia or aspiration should also be considered.
[2024-05-04] MEDS: FAMOTIDINE 20 MG TAB PO SCH (08:47)
[2024-05-04] MEDS: ENOXAPARIN 40 MG/0.4 ML SYRINGE SQ SCH (08:47)
--- NOTE | 2024-05-04 10:24 | P.GSCN ---
History of Present Illness Consult date: 05/04/24 Reason for Consult: Recurrent right-sided pneumothorax Requesting physician: Mariano Sheikh History of present illness: This is a 23-year-old gentleman who does not follow outpatient with a primary care physician. He is well-known to our service from previous right sided spontaneous pneumothorax in 2020. He also has a medical history of tobacco use with vaping, and occasional marijuana use. We saw him back in October 2020 when he had a spontaneous pneumothorax. He was treated with chest tube and released upon resolution of pneumothorax with the understanding that if he had a recurrent pneumothorax the recommendation would be for surgery with mechanical pleurodesis. He presented back to [facility] in March 2021 with a right-sided pneumothorax, although it was unclear at that time if it was truly a recurrence versus that he had never fully reexpanded. He was offered surgery at that time, patient declined. Last night he had been at home playing a video game when he started to feel his heart race and had right sided chest pain along with difficulty taking a deep breath due to pain. Stated this pain felt different than his last spontaneous pneumothorax. He presented to [facility] emergency room for evaluation and treatment. Chest x-ray revealed right- sided apical and lateral wall pneumothorax. Lab work was unremarkable. A Thora vent was placed by the emergency room physicians under conscious sedation. Post chest x-ray did reveal some reexpansion of the lung although not complete reexpansion. The patient was admitted with consultation placed to pulmonology as well as cardiothoracic surgery for treatment recommendations. Of note the Thora-vent was placed to intermittent wall suction instead of continuous wall suction. Review of Systems Review of systems was completed and was negative except as noted - Cardiovascular Reports chest pain, Reports shortness of breath Past Medical History Past Medical History: No Reported History Additional Past Medical History / Comment(s): spontaneous right sided pneumothorax 10/2020, 03/2021 History of Any Multi-Drug Resistant Organisms: None Reported Past Surgical History: Appendectomy Past Anesthesia/Blood Transfusion Reactions: No Reported Reaction Past Psychological History: No Psychological Hx Reported Smoking Status: Former smoker Past Alcohol Use History: Occasional Past Drug Use History: Marijuana - Past Family History Mother Family Medical History: Unable to Obtain Medications and Allergies Allergies Allergy/AdvReac Type Severity Reaction Status Date / Time No Known Allergies Allergy Verified 05/06/24 13:02 Surgical - Exam Vital Signs Temp Pulse Resp BP Pulse Ox 98.6 F 87 18 136/90 97 05/04/24 00:15 05/04/24 00:15 05/04/24 00:15 05/04/24 00:15 05/04/24 00:15 CONSTITUTIONAL: Very sleepy/sedated, appears comfortable, cooperative, well- developed, well-nourished, no acute distress EYES: Pupils equal, round, reactive to light, normal ocular movement ENT: Moist mucous membranes without oral lesions present NECK: No masses, no bruits, trachea midline RESPIRATORY: Lungs sounds clear to auscultation bilaterally with decreased breath sounds at the right apex. Respirations even, nonlabored. Currently on 3 L nasal cannula with oxygen saturation 100% CARDIOVASCULAR: S1, S2 present. Regular rate and rhythm. Palpable peripheral pulses bilaterally GASTROINTESTINAL: Abdomen soft, nontender, nondistended without masses or organomegaly noted. There is no rebound or guarding present. Active bowel sounds present 4 quadrants. GENITOURINARY: Deferred INTEGUMENTARY: Skin is warm and dry NEUROLOGIC: Cranial nerves II through XII intact MUSKULOSKELETAL: Able to move all extremities PSYCHIATRIC: Very sleepy/sedated at the time of assessment Results - Labs 05/06/24 03:04 05/06/24 03:04 Abnormal Lab Results - Last 24 Hours (Table) 05/04/24 Range/Units 00:40 Glucose 102 H (74-99) mg/dL Diabetes panel 05/04/24 Range/Units 00:40 Sodium 138 (137-145) mmol/L Potassium 4.0 (3.5-5.1) mmol/L Chloride 107 (98-107) mmol/L Carbon Dioxide 25 (22-30) mmol/L BUN 10 (9-20) mg/dL Creatinine 0.89 (0.66-1.25) mg/dL Glucose 102 H (74-99) mg/dL Calcium 9.5 (8.4-10.2) mg/dL AST 37 (17-59) U/L ALT 28 (4-49) U/L Alkaline Phosphatase 67 (38-126) U/L Total Protein 7.6 (6.3-8.2) g/dL Albumin 4.7 (3.5-5.0) g/dL Calcium panel 05/04/24 Range/Units 00:40 Calcium 9.5 (8.4-10.2) mg/dL Albumin 4.7 (3.5-5.0) g/dL Pituitary panel 05/04/24 Range/Units 00:40 Sodium 138 (137-145) mmol/L Potassium 4.0 (3.5-5.1) mmol/L Chloride 107 (98-107) mmol/L Carbon Dioxide 25 (22-30) mmol/L BUN 10 (9-20) mg/dL Creatinine 0.89 (0.66-1.25) mg/dL Glucose 102 H (74-99) mg/dL Calcium 9.5 (8.4-10.2) mg/dL Adrenal panel 05/04/24 Range/Units 00:40 Sodium 138 (137-145) mmol/L Potassium 4.0 (3.5-5.1) mmol/L Chloride 107 (98-107) mmol/L Carbon Dioxide 25 (22-30) mmol/L BUN 10 (9-20) mg/dL Creatinine 0.89 (0.66-1.25) mg/dL Glucose 102 H (74-99) mg/dL Calcium 9.5 (8.4-10.2) mg/dL Total Bilirubin 1.1 (0.2-1.3) mg/dL AST 37 (17-59) U/L ALT 28 (4-49) U/L Alkaline Phosphatase 67 (38-126) U/L Total Protein 7.6 (6.3-8.2) g/dL Albumin 4.7 (3.5-5.0) g/dL - Imaging Chest x-ray: report reviewed, image reviewed Assessment and Plan Assessment: Recurrent spontaneous right-sided pneumothorax History of previous tobacco dependence/vaping Occasional marijuana use Plan: The patient was seen and examined with Dr. Loza laying in bed on the fourth floor in no acute distress. He is quite sleepy/somnolent, has received a lot of sedation/pain control. Recommendation is for surgery with mechanical pleurodesis, timing to be determined. We did order incentive spirometry, patient should be encouraged to use. Will obtain CT of the chest tomorrow. Continue Thora-vent to -20 cm of continuous wall suction. Wean oxygen as to lerated. As sedation wears off and patient becomes more alert increase activity, ambulate as tolerated. Will discuss surgical recommendations in great detail once patient is awake and alert. Medical management of other comorbidities per internal medicine service. More recommendations to follow. Thank you for this consult, we will continue to follow along and make further recommendations as appropriate. I have personally seen and examined the patient, performed the documentation and the assessment and plan as written. Number of minutes spent on the visit: 30. Enma Duenas, MENDOZAC The patient presents to the hospital and was diagnosed with his third episode of right spontaneous PTX. Right VATS with possible lung resection along with mechanical pleurodesis were recommended. The patient is agreeable. We will plan on performing the procedure on 05/06/2024.
--- NOTE | 2024-05-04 11:41 | P.CNPUL ---
History of Present Illness Consult date: 05/04/24 Requesting physician: Mariano Sheikh Reason for consult: dyspnea, chest pain, pneumothorax, abnormal CXR/CT Chief complaint: Chest pain and shortness of breath. History of present illness: Pulmonary consult dated May 04, 2024. 23-year-old white male with a history of spontaneous pneumothorax, previously, twice, in October, in March 2021. The patient presented to the emergency department on May 04, complaining of shortness of breath, right-sided chest pain. The patient was discovered to have another right-sided pneumothorax, and a Thora vent device was placed. The patient states that he does not currently smoke. He used to smoke in the past. He does smoke marijuana from time to time. He does not vape. He was seen by surgery on his previous 2 occasions, back in 2020, once by Dr. Dolan, and once by Dr. Holcomb. Cardiothoracic surgery, has been consulted at this time. The patient is currently on 3 L of oxygen. He is getting saline at 30 cc an hour. CBC is completely normal. Coagulation studies are normal. Glucose is 102, otherwise a comprehensive metabolic profile was completely normal. Initial chest x-ray shows moderate right-sided pneumothorax. A repeat x-ray, after Thora vent placement, showed a small 10 to 15% right apical pneumothorax. Review of Systems REVIEW OF SYSTEMS: CONSTITUTIONAL: [Negative.] NEUROLOGIC: [ Negative.] HEENT: [ Negative.] CARDIAC: [Negative.] PULMONARY: Shortness of breath and chest pain. GI: [Negative.] : [Negative.] RHEUMATOLOGIC: [ Negative.] IMMUNOLOGIC: [ Negative.] ENDOCRINE: [Negative. ] DERMATOLOGIC: [Negative.] Past Medical History Past Medical History: No Reported History Additional Past Medical History / Comment(s): spontaneous right sided pneumothorax 10/2020 History of Any Multi-Drug Resistant Organisms: None Reported Past Surgical History: Appendectomy Past Anesthesia/Blood Transfusion Reactions: No Reported Reaction Past Psychological History: No Psychological Hx Reported Smoking Status: Former smoker Past Alcohol Use History: Occasional Past Drug Use History: Marijuana - Past Family History Mother Family Medical History: Unable to Obtain Medications and Allergies Home Medications Medication Instructions Recorded Confirmed Type No Known Home Medications 05/04/24 05/04/24 History Allergies Allergy/AdvReac Type Severity Reaction Status Date / Time No Known Allergies Allergy Verified 05/04/24 10:39 Physical Exam Osteopathic Statement: *. No significant issues noted on an osteopathic structural exam other than those noted in the History and Physical/Consult. Vitals: Vital Signs Temp Pulse Pulse Resp BP BP Pulse Ox 05/04/24 07:06 98.2 F 91 14 109/68 100 05/04/24 05:20 97.7 F 79 17 121/79 100 05/04/24 04:39 97.5 F L 72 16 116/72 100 05/04/24 04:00 58 L 16 119/79 100 05/04/24 03:30 65 16 120/82 100 05/04/24 03:00 65 16 120/74 100 05/04/24 02:45 56 L 16 117/71 100 05/04/24 02:30 66 18 133/93 100 05/04/24 02:15 70 19 112/68 99 05/04/24 02:10 77 18 113/67 100 05/04/24 02:05 80 20 115/60 100 05/04/24 02:00 80 19 109/66 100 05/04/24 01:55 64 18 137/90 100 05/04/24 01:45 64 18 137/90 100 05/04/24 00:15 98.6 F 87 18 136/90 97 Intake and Output 05/03/24 05/04/24 05/04/24 22:59 06:59 14:59 Other: Weight 77.111 kg Results - Laboratory Findings CBC and BMP: 05/04/24 00:40 05/04/24 00:40 PT/INR, D-dimer PT 10.8 sec (10.0-12.5) 05/04/24 00:40 INR 1.0 (<1.2) 05/04/24 00:40 Abnormal lab findings: Abnormal Labs 05/04/24 00:40 Glucose 102 H - Diagnostic Findings Chest x-ray: image reviewed Assessment and Plan Assessment: Spontaneous idiopathic pneumothorax, right side, x 3. Previously, he had pneumothorax, in October and March 2024. No other significant past medical history. Plan: Plan dated May 04, 2024. A Thora vent device was placed by the ER physician. Cardiothoracic surgery was consulted. The patient remains on 3 L of oxygen. He is getting saline at 30 cc an hour. We will continue to follow make recommendations. Surgery should be contemplated, as this is his third episode. His first episode was in October 2020, second episode March 2021, and third episode May 2024. Prognosis is guarded. Time with Patient: Greater than 30
--- NOTE | 2024-05-04 14:06 | P.HPIM ---
History of Present Illness H&P Date: 05/04/24 Patient is a 23-year-old male with a PMH of spontaneous right-sided pneumothorax (10/2020 and 03/2021) presenting with right-sided chest pain. Patient reports he was playing a video game and felt his heart started to race. Shortly after he had a sudden onset of right-sided chest pain. Described as a sharp chest pain made worse when taking a deep breath. The chest pain is non-radiating. When asked he says the pain feels different from the last time he had a pneumothorax. Denies any trauma, fever, chills. Patient admits to dry cough but denies any hemoptysis or sputum production. Denies any abdominal pain, nausea, vomiting, diarrhea, diaphoresis, urinary symptoms. Per ED patient denies any history of sudden cardiac , ACS, CVA/TIA. Has history of smoking/vaping. EKG independently interpreted displays sinus rhythm, vent rate 63 bpm, QTc 362 CXR on admission at 1:08 AM displays moderate right-sided pneumothorax estimated at 25-30%, no new mediastinal shift Repeat CXR at 3:27 AM displays large right pneumothorax with more than 70% loss of volume, associated mild mediastinal shift to the left Repeat CXR at 4:23 AM s/p chest tube placement displays right apical pneumothora x with bilateral 10-50% loss of height, markedly decreased Troponin <0.012, CBC, coagulation, chemistry all within normal limits. 98.2 F, ID 91, RR 14, BP 109/68, O2 sat 100% on 3 L nasal cannula ED documentation reviewed. Review of systems: Pertinent positives and negatives as discussed in HPI, a complete review of systems was performed and all other systems are negative. Social history: Tobacco: Former smoker/vaper Alcohol: Occasional Recreational drugs: Occasional marijuana use Travel: No recent Physical examination: Vital signs reviewed General: non toxic, no distress, appears at stated age, normal weight Derm: no unusual rashes/lesions, warm Head: atraumatic, normocephalic, symmetric Eyes: EOMI, anicteric sclera, pupils equal round reactive to light ENT: Nose and ears atraumatic Mouth: no lip lesion, mucus membranes moist Cardiovascular: S1S2 reg, no murmur, positive dorsalis pedis pulse bilateral, no edema Lungs: Thora-vent on right side, CTA bilateral, no rhonchi, no rales, no accessory muscle use Abdominal: soft, nontender to palpation, no guarding Ext: muscle strength 5 out of 5 in all 4 extremities grossly, no gross muscle atrophy Neuro: CN II-XI grossly intact, no gross focal neuro deficits Psych: Alert, oriented to person, place, and time Assessment/Plan: Patient is a 23-year-old male with a PMH of spontaneous right-sided pneumothorax (10/2020) presenting with right-sided chest pain. #. Spontaneous idiopathic pneumothorax Had previous spontaneous pneumothorax in October 2020 and March 2021 Chest x-ray independently interpreted displayed moderate right-sided pneumothorax, repeat x-ray showed worsening of 70% loss of volume On supplemental oxygen, target SpO2 >/= 96% Right-sided Thora vent in place by ER Pain management Repeat chest x-ray to find any evidence of progression Incentive spirometry ordered cardiothoracic consulted, note read. Plan for mechanical pleurodesis tomorrow Consult pulmonology, note read. Continue with management, surgery should be contemplated F: NS at 30 cc/HR E: Replete electrolytes as needed N: Regular diet A: Ambulatory DVT prophylaxis: Lovenox 40 SQ daily The patient is admitted with an anticipated left than 2 midnight stay for evaluation of spontaneous pneumothorax. CODE STATUS: Full Discussed with: Patient Anticipated discharge place: Home Attestation I have seen and examined this patient with my resident , discussed the same with the resident/MIKAL, and agree with the dictator's assessment and plan as written Dr. Zak huff Past Medical History Past Medical History: No Reported History Additional Past Medical History / Comment(s): spontaneous right sided pneumothorax 10/2020 History of Any Multi-Drug Resistant Organisms: None Reported Past Surgical History: Appendectomy Past Anesthesia/Blood Transfusion Reactions: No Reported Reaction Past Psychological History: No Psychological Hx Reported Smoking Status: Former smoker Past Alcohol Use History: Occasional Past Drug Use History: Marijuana - Past Family History Mother Family Medical History: Unable to Obtain Medications and Allergies Home Medications Medication Instructions Recorded Confirmed Type No Known Home Medications 05/04/24 05/04/24 History Allergies Allergy/AdvReac Type Severity Reaction Status Date / Time No Known Allergies Allergy Verified 05/04/24 10:39 Physical Exam Vitals: Vital Signs Temp Pulse Pulse Resp BP BP Pulse Ox 05/04/24 07:06 98.2 F 91 14 109/68 100 05/04/24 05:20 97.7 F 79 17 121/79 100 05/04/24 04:39 97.5 F L 72 16 116/72 100 05/04/24 04:00 58 L 16 119/79 100 05/04/24 03:30 65 16 120/82 100 05/04/24 03:00 65 16 120/74 100 05/04/24 02:45 56 L 16 117/71 100 05/04/24 02:30 66 18 133/93 100 05/04/24 02:15 70 19 112/68 99 05/04/24 02:10 77 18 113/67 100 05/04/24 02:05 80 20 115/60 100 05/04/24 02:00 80 19 109/66 100 05/04/24 01:55 64 18 137/90 100 05/04/24 01:45 64 18 137/90 100 05/04/24 00:15 98.6 F 87 18 136/90 97 Intake and Output 05/03/24 05/04/24 05/04/24 22:59 06:59 14:59 Other: Weight 77.111 kg Results CBC & Chem 7: 05/04/24 00:40 05/04/24 00:40 Labs: Abnormal Lab Results - Last 24 Hours (Table) 05/04/24 Range/Units 00:40 Glucose 102 H (74-99) mg/dL
[2024-05-04] MEDS: HYDROmorphone 2 MG/ML 1 ML SYRINGE IVP PRN (16:34)
[2024-05-04] MEDS: ONDANSETRON 4 MG/2 ML VIAL IVP PRN (17:30)
[2024-05-04] MEDS: CALCIUM CARBONATE 500 MG CHEWABLE PO PRN (20:21)
[2024-05-04] MEDS: KETOROLAC 15 MG/ML 1 ML VIAL IVP PRN (21:05)
[2024-05-04] MEDS: PANTOPRAZOLE 40 MG/10 ML VIAL IVP SCH (21:05)
[2024-05-04] MEDS: ALPRAZolam 0.25 MG TAB PO PRN (22:33)
[2024-05-05] MEDS: SODIUM CHLORIDE 0.9% 1,000 ML IV SCH (01:46)
--- NOTE | 2024-05-05 07:16 | XR ---
EXAMINATION TYPE: XR chest 1V DATE OF EXAM: 05/05/2024 5:09 AM COMPARISON: Chest radiographs from 05/04/2024 CLINICAL INDICATION: Male, 23 years old with history of pneumothorax; [facility] TECHNIQUE: XR chest 1V Frontal view of the chest. FINDINGS: Lungs/Pleura: There is no evidence of pleural effusion, focal consolidation, or pneumothorax. Pulmonary vascularity: Unremarkable. Heart/mediastinum: Cardiomediastinal silhouette is unremarkable. Musculoskeletal: No acute osseous pathology. Other findings: None Lines/Tubes: Right thoracotomy tube is present without evidence of pneumothorax. IMPRESSION: Thoracotomy device without evidence of pneumothorax. [facility], , 05/05/2024 7:14 AM
--- NOTE | 2024-05-05 07:47 | CT ---
EXAMINATION TYPE: CT chest wo con DATE OF EXAM: 05/05/2024 7:27 AM COMPARISON: 03/31/2021 CLINICAL INDICATION: Male, 23 years old with history of Recurrent right-sided pneumothorax; [facility], Recu rrent right-sided pneumothorax TECHNIQUE: Multiple axial images were obtained through the chest. Sagittal and coronal reformats were created for review. MIP was performed on a separate workstation. Contrast used: mL of (None if empty) Oral contrast used: (None if empty) CT DLP: 395.2 mGycm, Automated exposure control for dose reduction was used. FINDINGS: LUNGS/ PLEURA: There is a trace right pneumothorax with thoracotomy tube in place. No left pneumothor ax. AIRWAY: Patent and unremarkable. HEART: Size within normal limits. MEDIASTINUM: No gross evidence of adenopathy. VASCULATURE: No aortic aneurysm. MUSCULOSKELETAL: No acute osseous abnormalities SOFT TISSUES/LYMPH NODES: Unremarkable. LOWER NECK: No significant findings. UPPER ABDOMEN: No significant findings. IMPRESSION: Trace left pneumothorax with thoracotomy tube in place. [facility], , 05/05/2024 7:45 AM
--- NOTE | 2024-05-05 09:04 | P.PN ---
Subjective Progress Note Date: 05/05/24 Principal diagnosis: Recurrent spontaneous right-sided pneumothorax. History of previous tobacco dependence/vaping, occasional marijuana use The patient was seen and examined sitting up in bed on the fourth floor in no acute distress. Earlier this morning and yesterday when we attempted to see the patient he was quite sedated. He is more alert and awake currently. Discussed right-sided VATS with mechanical pleurodesis, discussed what that surgery would entail, patient agreeable to surgery. Likely will be completed tomorrow afternoon. Will make n.p.o. after midnight. Will continue Thora-vent to continuous wall suction. Chest x-ray reviewed, CT reviewed revealing continuous apical pneumothorax. No other new concerns. Objective - Vital Signs Vital signs: Vital Signs Temp 97.9 F 05/05/24 06:52 Pulse 87 05/05/24 06:52 Resp 16 05/05/24 06:52 BP 109/70 05/05/24 06:52 Pulse Ox 100 05/05/24 06:52 FiO2 Intake & Output 05/04/24 05/05/24 05/05/24 19:59 06:59 18:59 Output Total 700 Balance -700 Weight Output: Urine 700 Other: # Voids # Emeses - Exam CONSTITUTIONAL: Appears comfortable, cooperative, no acute distress RESPIRATORY: Lungs sounds diminished on the right. Respirations even, nonlabored. Currently on 3 L nasal cannula with oxygen saturation 100%. Able to achieve 1000 mL on incentive spirometry. Strong cough. CARDIOVASCULAR: S1, S2 present. Regular rate and rhythm. Palpable peripheral pulses bilaterally. No edema present. No calf pain or tenderness noted. SCDs present. GASTROINTESTINAL: Abdomen soft, nontender, nondistended. Active bowel sounds present 4 quadrants. Tolerating diet GENITOURINARY: Continues to void INTEGUMENTARY: Skin is warm and dry NEUROLOGIC: Cranial nerves II through XII intact MUSKULOSKELETAL: Able to move all extremities, strength equal bilaterally, gait normal PSYCHIATRIC: Alert and oriented to person place and time, appropriate affect, intact judgment and insight INVASIVE LINES AND TUBES: Right sided Thora-vent present to continuous wall suction, no airleak present, no drainage - Allied health notes Allied health notes reviewed: nursing - Labs CBC & Chem 7: 05/04/24 00:40 05/04/24 00:40 - Imaging and Cardiology Chest x-ray: report reviewed, image reviewed CT scan - chest: report reviewed, image reviewed Assessment and Plan Assessment: Recurrent spontaneous right-sided pneumothorax, status post placement of Thora-vent by the emergency room physicians History of previous tobacco dependence/vaping Occasional marijuana use Plan: Discussed plans for surgery with patient, he does give consent Will plan for right sided video-assisted thoracoscopic surgery with mechanical pleurodesis, anticipate tomorrow afternoon by Dr. Loza Will make n.p.o. after midnight Wean oxygen as tolerated Encourage incentive spirometry use Will continue Thora-vent to continuous wall suction due to pneumothorax still present on CT scan and patient going for surgery tomorrow Increase activity as tolerated. Patient may have Thora-vent removed from suction for short periods to be able to ambulate in the hallway Pain control per current medication regimen Medical management of other comorbidities per internal medicine service More recommendations to follow
[2024-05-05 09:08] LABS: Basophils # (A) 0.01 X 10*3/uL (0.00-0.10); Basophils % (A) 0.1 %; Eosinophils # (A) 0.07 X 10*3/uL (0.04-0.35); HCT 38.4 % (39.6-50.0); HGB 13.5 g/dL (13.0-17.0); Lymphocytes # (A) 1.73 X 10*3/uL (0.90-5.00); Lymphocytes % (A) 24.2 %; MCH 29.9 pg (27.0-32.0); MCHC 35.2 g/dL (32.0-37.0); MCV 85.1 FL (80.0-97.0); Monocytes # (A) 0.67 X 10*3/uL (0.20-1.00); Monocytes % (A) 9.4 %; NRBC Per 100 WBC 0 X 10*3/uL (0.00-0.01); Neutrophils # (A) 4.64 X 10*3/uL (1.80-7.70); Platelet Count 209 X 10*3/uL (140-440); RBC 4.51 X 10*6/uL (4.40-5.60); RDW 12.4 % (11.5-14.5); WBC 7.14 X 10*3/uL (4.50-10.00)
[2024-05-05 09:33] LABS: ALT 22 U/L (10-49); AST 21 U/L (14-35); Albumin 3.8 g/dL (3.8-4.9); Albumin/Globulin Ratio 1.73 Ratio (1.60-3.17); Alkaline Phosphatase 57 U/L (41-126); BUN/Creat Ratio 13.38 Ratio (12.00-20.00); Blood Urea Nitrogen 10.7 mg/dL (9.0-27.0); Carbon Dioxide 24.2 mmol/L (21.6-31.8); Chloride 105 mmol/L (96-109); Globulin 2.2 g/dL (1.6-3.3); Glucose 96 mg/dL (70-110); Magnesium 1.7 mg/dL (1.5-2.4); Sodium 140 mmol/L (135-145); Total Bilirubin 0.9 mg/dL (0.3-1.2)
--- NOTE | 2024-05-05 12:19 | P.PN ---
Subjective Progress Note Date: 05/05/24 23-year-old white male with a history of spontaneous pneumothorax, previously, twice, in October, in March 2021. The patient presented to the emergency department on May 04, complaining of shortness of breath, right-sided chest pain. The patient was discovered to have another right-sided pneumothorax, and a Thora vent device was placed. The patient states that he does not currently smoke. He used to smoke in the past. He does smoke marijuana from time to time. He does not vape. He was seen by surgery on his previous 2 occasions, back in 2020, once by Dr. Dolan, and once by Dr. Holcomb. Cardiothoracic surgery, has been consulted at this time. The patient is currently on 3 L of oxygen. He is getting saline at 30 cc an hour. CBC is completely normal. Coagulation studies are normal. Glucose is 102, otherwise a comprehensive metabolic profile was completely normal. Initial chest x-ray shows moderate right-sided pneumothorax. A repeat x-ray, after Thora vent placement, showed a small 10 to 15% right apical pneumothorax. The patient is seen today May 05, 2024 follow-up on the regular medical floor. He is currently resting in bed. Awake and alert in no acute distress. Continue good O2 saturations up to 100% on 3 L/min per nasal cannula. He is afebrile. Hemodynamically stable. CT of the chest reveals trace right pneumothorax. Thora vent in place Pleur-evac and continuous wall suction. No leak present currently. Sodium 140. Potassium 4.0. Bicarb 24. BUN 11. Creatinine 0.8. Glucose 96.. Working with the incentive spirometer. Objective - Vital Signs Vital signs: Vital Signs Temp 97.9 F 05/05/24 06:52 Pulse 87 05/05/24 06:52 Resp 16 05/05/24 06:52 BP 109/70 05/05/24 06:52 Pulse Ox 100 05/05/24 08:51 FiO2 Intake & Output 05/04/24 05/05/24 05/05/24 19:59 06:59 18:59 Output Total 1900 Balance -1900 Weight Output: Urine 1900 Other: # Voids # Emeses - Exam GENERAL EXAM: Alert, pleasant 23-year-old male, on 3 L nasal cannula, fairly comfortable in no apparent distress. HEAD: Normocephalic. EYES: Normal reaction of pupils, equal size. NOSE: Clear with pink turbinates. THROAT: No erythema or exudates. NECK: No masses, no JVD. CHEST: Right sided Thora vent in place to Pleur-evac and continuous wall suction. No leak noted. LUNGS: Equal air entry with no crackles, wheeze, rhonchi or dullness. CVS: S1 and S2 normal with no audible murmur, regular rhythm. ABDOMEN: No hepatosplenomegaly, normal bowel sounds, no guarding or rigidity. SPINE: No scoliosis or deformity SKIN: No rashes CENTRAL NERVOUS SYSTEM: No focal deficits, tone is normal in all 4 extremities. EXTREMITIES: There is no peripheral edema. No clubbing, no cyanosis. Peripheral pulses are intact. - Labs CBC & Chem 7: 05/05/24 04:04 05/05/24 04:04 Labs: Abnormal Lab Results - Last 24 Hours (Table) 05/05/24 05/05/24 Range/Units 04:04 04:04 Hct 38.4 L (39.6-50.0) % Total Protein 6.0 L (6.2-8.2) g/dL Assessment and Plan Assessment: Spontaneous idiopathic pneumothorax, right side, x 3. Previously, he had pneumothorax, in October and March 2024. Thora vent remains in place on the right. Still with a apical pneumothorax on CT scan. Plan is for right sided video-assisted thoracoscopic surgery with mechanical pleurodesis possibly tomorrow May 06, 2024 Previous history of tobacco dependence/vaping No other significant past medical history Plan: The patient was seen and evaluated Imaging, labs and medications reviewed Still with a right apical pneumothorax on CT scan CT services planning for surgery tomorrow Currently on 3 L nasal cannula Working well with the incentive spirometer Increase his activity as tolerated We will continue to follow I have personally seen and examined the patient, performed the documentation and the assessment and plan as written. Number of minutes spent on the visit: 10 Dictation was produced using [employer] dictation software. Please excuse any grammatical, word or spelling errors.
--- NOTE | 2024-05-05 13:29 | P.PN ---
Subjective Progress Note Date: 05/05/24 Patient is a 23-year-old male with a PMH of spontaneous right-sided pneumothorax (10/2020 and 03/2021) presenting with right-sided chest pain. Patient reports he was playing a video game and felt his heart started to race. Shortly after he had a sudden onset of right-sided chest pain. Described as a sharp chest pain made worse when taking a deep breath. The chest pain is non-radiating. When asked he says the pain feels different from the last time he had a pneumothorax. Denies any trauma, fever, chills. Patient admits to dry cough but denies any hemoptysis or sputum production. Denies any abdominal pain, nausea, vomiting, diarrhea, diaphoresis, urinary symptoms. Per ED patient denies any history of sudden cardiac , ACS, CVA/TIA. Has history of smoking/vaping. EKG independently interpreted displays sinus rhythm, vent rate 63 bpm, QTc 362 CXR on admission at 1:08 AM displays moderate right-sided pneumothorax estimated at 25-30%, no new mediastinal shift Repeat CXR at 3:27 AM displays large right pneumothorax with more than 70% loss of volume, associated mild mediastinal shift to the left Repeat CXR at 4:23 AM s/p chest tube placement displays right apical pneumothorax with bilateral 10-50% loss of height, markedly decreased Troponin <0.012, CBC, coagulation, chemistry all within normal limits. 98.2 F, SC 91, RR 14, BP 109/68, O2 sat 100% on 3 L nasal cannula 05/05. Patient seen and examined. Denies any chest pain or shortness of breath. Thora vent in place REVIEW OF SYSTEMS: CONSTITUTIONAL: No fever, no malaise,. CARDIOVASCULAR: No chest pain, no palpitations, no syncope. PULMONARY: No shortness of breath, no cough, GASTROINTESTINAL: No diarrhea, no nausea, no vomiting, no abdominal pain. NEUROLOGICAL: No headaches, no weakness, PHYSICAL EXAMINATION: GENERAL: The patient is alert and oriented x3, not in any acute distress. Well developed, well nourished. HEENT: Pupils are round and equally reacting to light. EOMI. No scleral icterus. No conjunctival pallor. Normocephalic, atraumatic. No pharyngeal erythema. No thyromegaly. CARDIOVASCULAR: S1 and S2 present. No murmurs, rubs, or gallops. PULMONARY: Good air entry bilaterally, right-sided Thora vent seen ABDOMEN: Soft, nontender, nondistended, normoactive bowel sounds. No palpable organomegaly. MUSCULOSKELETAL: No joint swelling or deformity. EXTREMITIES: No cyanosis, clubbing, or pedal edema. NEUROLOGICAL: Gross neurological examination did not reveal any focal deficits. SKIN: No rashes. Assessment and plan Spontaneous idiopathic pneumothorax Acute hypoxic respiratory failure Monitor vital signs Monitor CBC Monitor CMP Continue telemetry monitoring Encourage use of incentive spirometer Aggressive bronchopulmonary hygiene Continue pain management Continue IV fluids Patient scheduled for thoracoscopic bleb resection and mechanical pleurodesis CT surgery Pulmonary following Labs and medication were reviewed.. Continue same treatment. Continue with symptomatic treatment. Resume home medication. Monitor labs and vitals. DVT and GI prophylaxis. Further recommendations as per clinical course of the patient Dictation was produced using [employer] dictation software. please excuse any grammatical, word or spelling errors. Objective - Vital Signs Vital signs: Vital Signs Temp 97.9 F 05/05/24 06:52 Pulse 87 05/05/24 06:52 Resp 16 05/05/24 06:52 BP 109/70 05/05/24 06:52 Pulse Ox 100 05/05/24 08:51 FiO2 Intake & Output 05/04/24 05/05/24 05/05/24 19:59 06:59 18:59 Output Total 1900 Balance -1900 Weight Output: Urine 1900 Other: # Voids # Emeses - Labs CBC & Chem 7: 05/05/24 04:04 05/05/24 04:04 Labs: Abnormal Lab Results - Last 24 Hours (Table) 05/05/24 05/05/24 Range/Units 04:04 04:04 Hct 38.4 L (39.6-50.0) % Total Protein 6.0 L (6.2-8.2) g/dL
[2024-05-06 08:28] LABS: Basophils # (A) 0.02 X 10*3/uL (0.00-0.10); Basophils % (A) 0.3 %; Eosinophils % (A) 1.5 %; HCT 36.2 % (39.6-50.0); HGB 12.8 g/dL (13.0-17.0); Lymphocytes # (A) 1.95 X 10*3/uL (0.90-5.00); Lymphocytes % (A) 29.1 %; MCH 29.8 pg (27.0-32.0); MCHC 35.4 g/dL (32.0-37.0); MCV 84.2 FL (80.0-97.0); Mean Platelet Volume 10.4 FL (9.5-12.2); Monocytes # (A) 0.52 X 10*3/uL (0.20-1.00); Monocytes % (A) 7.7 %; NRBC Per 100 WBC 0 X 10*3/uL (0.00-0.01); Neutrophils # (A) 4.11 X 10*3/uL (1.80-7.70); Neutrophils % (A) 61.3 %; Platelet Count 215 X 10*3/uL (140-440); RDW 12.1 % (11.5-14.5); WBC 6.71 X 10*3/uL (4.50-10.00)
[2024-05-06 08:40] LABS: ALT 21 U/L (10-49); AST 18 U/L (14-35); Albumin 3.7 g/dL (3.8-4.9); Albumin/Globulin Ratio 2.18 Ratio (1.60-3.17); Alkaline Phosphatase 54 U/L (41-126); BUN/Creat Ratio 8.11 Ratio (12.00-20.00); Blood Urea Nitrogen 7.3 mg/dL (9.0-27.0); Calcium 8.5 mg/dL (8.7-10.3); Carbon Dioxide 26.2 mmol/L (21.6-31.8); Chloride 104 mmol/L (96-109); Globulin 1.7 g/dL (1.6-3.3); Glucose 104 mg/dL (70-110); Potassium 3.6 mmol/L (3.5-5.5); Sodium 139 mmol/L (135-145); Total Bilirubin 0.4 mg/dL (0.3-1.2); Total Protein 5.4 g/dL (6.2-8.2)
[2024-05-06] MEDS ORDERED: ACETAMINOPHEN IV (For NPO) 1,000 MG/100 ML VIAL ONE (12:59)
[2024-05-06] MEDS ORDERED: HYDROmorphone (PF) 1 MG/ML ONE (12:59)
[2024-05-06] MEDS ORDERED: MIDAZOLAM 2 MG/2 ML VIAL ONE (12:59)
[2024-05-06] MEDS ORDERED: PROPOFOL 10 MG/ML 20 ML VIAL IV ONE (12:59)
[2024-05-06] MEDS ORDERED: SUCCINYLCHOLINE CHLORIDE 200 MG/10 ML VIAL IV ONE (12:59)
[2024-05-06] MEDS ORDERED: ROCURONIUM 10 MG/ML (5 ML VIAL) IV ONE (12:59)
[2024-05-06] MEDS ORDERED: fentaNYL (PF) 50 MCG/ML 2 ML AMP ONE (12:59)
[2024-05-06] MEDS ORDERED: LIDOCAINE 1% INJ 10MG/ML (20 ML MDV) ONE (12:59)
[2024-05-06] MEDS ORDERED: KETAMINE HCL IN 0.9 % NACL 50 MG/5 ML SYRINGE ONE (12:59)
[2024-05-06] MEDS ORDERED: NEOSTIGMINE 1 MG/ML 10 ML VIAL ONE (12:59)
[2024-05-06] MEDS ORDERED: GLYCOPYRROLATE 0.2 MG/ML 2 ML VIAL ONE (12:59)
[2024-05-06] MEDS: IV FLUID CONTINUATION 1,000 ML IV ONE ×2 (13:07→16:16)
[2024-05-06] MEDS: BUPIVACAINE (PF) 0.5% 30 ML VIAL SQ ONE (13:38)
[2024-05-06] MEDS: LACTATED RINGERS 1,000 ML BAG IV STA (15:18)
[2024-05-06] MEDS: HYDROmorphone 0.5 MG/0.5 ML SYRINGE IVP STA (15:24)
--- NOTE | 2024-05-06 15:26 | XR ---
EXAMINATION TYPE: XR chest 1V portable DATE OF EXAM: 05/06/2024 COMPARISON: 05/04/2024 HISTORY: Post VATS TECHNIQUE: Single frontal view of the chest is obtained. FINDINGS: There is a right chest tube the tip of which is in the right lung apex. There is no pneumothorax. The lungs are clear and there is no airspace consolidation. Heart and pulmonary vasculature are normal. The osseous structures are intact IMPRESSION: 1. Right chest tube tip in the right lung apex. No pneumothorax. 2. No acute cardiopulmonary disease. [facility], , 05/06/2024 3:24 PM
--- NOTE | 2024-05-06 16:41 | P.PN ---
Subjective Progress Note Date: 05/06/24 23-year-old white male with a history of spontaneous pneumothorax, previously, twice, in October, in March 2021. The patient presented to the emergency department on May 04, complaining of shortness of breath, right-sided chest pain. The patient was discovered to have another right-sided pneumothorax, and a Thora vent device was placed. The patient states that he does not currently smoke. He used to smoke in the past. He does smoke marijuana from time to time. He does not vape. He was seen by surgery on his previous 2 occasions, back in 2020, once by Dr. Dolan, and once by Dr. Holcomb. Cardiothoracic surgery, has been consulted at this time. The patient is currently on 3 L of oxygen. He is getting saline at 30 cc an hour. CBC is completely normal. Coagulation studies are normal. Glucose is 102, otherwise a comprehensive metabolic profile was completely normal. Initial chest x-ray shows moderate right-sided pneumothorax. A repeat x-ray, after Thora vent placement, showed a small 10 to 15% right apical pneumothorax. The patient is seen today May 05, 2024 follow-up on the regular medical floor. He is currently resting in bed. Awake and alert in no acute distress. Continue good O2 saturations up to 100% on 3 L/min per nasal cannula. He is afebrile. Hemodynamically stable. CT of the chest reveals trace right pneumothorax. Thora vent in place Pleur-evac and continuous wall suction. No leak present currently. Sodium 140. Potassium 4.0. Bicarb 24. BUN 11. Creatinine 0.8. Glucose 96.. Working with the incentive spirometer. On 05/06/2024, the patient is being seen for a follow-up. The patient will be taken to the operating room to undergo a video-assisted thoracoscopic surgery with mechanical pleurodesis as the patient has developed recurrent spontaneous right-sided pneumothorax. This morning, the patient is on 3 days of oxygen by nasal cannula with a pulse ox of 99 to 100%. Denies having any significant shortness of breath. Hemodynamically stable. Thora vent is still present in the right chest. No other new complaints otherwise for now. Blood work from today shows a white cell count of 6.7 with a hemoglobin 12.8 and a platelet c ount of 215. Electrolytes are all within normal limits. Objective - Vital Signs Vital signs: Vital Signs Temp 97.8 F 05/06/24 07:01 Pulse 78 05/06/24 07:01 Resp 16 05/06/24 07:01 BP 114/69 05/06/24 07:01 Pulse Ox 100 05/06/24 07:01 FiO2 Intake & Output 05/05/24 05/06/24 05/06/24 18:59 06:59 18:59 Intake Total 474 Output Total 1900 500 Balance -1899 Intake: Oral 474 Output: Urine 1900 500 Other: # Voids 1 - Exam GENERAL EXAM: Alert, pleasant 23-year-old male, on 3 L nasal cannula, fairly comfortable in no apparent distress. HEAD: Normocephalic. EYES: Normal reaction of pupils, equal size. NOSE: Clear with pink turbinates. THROAT: No erythema or exudates. NECK: No masses, no JVD. CHEST: Right sided Thora vent in place to Pleur-evac and continuous wall suction. No leak noted. LUNGS: Equal air entry with no crackles, wheeze, rhonchi or dullness. CVS: S1 and S2 normal with no audible murmur, regular rhythm. ABDOMEN: No hepatosplenomegaly, normal bowel sounds, no guarding or rigidity. SPINE: No scoliosis or deformity SKIN: No rashes CENTRAL NERVOUS SYSTEM: No focal deficits, tone is normal in all 4 extremities. EXTREMITIES: There is no peripheral edema. No clubbing, no cyanosis. Peripheral pulses are intact. - Labs CBC & Chem 7: 05/06/24 03:04 05/06/24 03:04 Labs: Abnormal Lab Results - Last 24 Hours (Table) 05/06/24 05/06/24 Range/Units 03:04 03:04 RBC 4.30 L (4.40-5.60) X 10*6/uL Hgb 12.8 L (13.0-17.0) g/dL Hct 36.2 L (39.6-50.0) % BUN 7.3 L (9.0-27.0) mg/dL BUN/Creatinine Ratio 8.11 L (12.00-20.00) Ratio Calcium 8.5 L (8.7-10.3) mg/dL Total Protein 5.4 L (6.2-8.2) g/dL Albumin 3.7 L (3.8-4.9) g/dL Assessment and Plan Plan: Spontaneous pneumothorax, right side, x 3. Previously, he had pneumothorax, in October and March 2024. Thora vent remains in place on the right. Still with a apical pneumothorax on CT scan. Plan is for right sided video-assisted thoracoscopic surgery with mechanical pleurodesis possibly tomorrow May 06, 2024 Previous history of tobacco dependence/vaping No other significant past medical history Plan: Awaiting thoracoscopic surgery for recurrent right-sided pneumothorax and mechanical pleurodesis Clinically and hemodynamically stable Currently on 3 L nasal cannula Working well with the incentive spirometer Increase his activity as tolerated We will continue to follow
--- NOTE | 2024-05-06 18:08 | P.PN ---
Subjective Progress Note Date: 05/06/24 Principal diagnosis: Hospital course: Patient is a 23-year-old male with a PMH of spontaneous right-sided pneumothorax (10/2020 and 03/2021) presenting with right-sided chest pain. Patient reports he was playing a video game and felt his heart started to race. Shortly after he had a sudden onset of right-sided chest pain. Described as a sharp chest pain made worse when taking a deep breath. The chest pain is non-radiating. When asked he says the pain feels different from the last time he had a pneumothorax. Denies any trauma, fever, chills. Patient admits to dry cough but denies any hemoptysis or sputum production. Denies any abdominal pain, nausea, vomiting, diarrhea, diaphoresis, urinary symptoms. Per ED patient denies any history of sudden cardiac , ACS, CVA/TIA. Has history of smoking/vaping. EKG independently interpreted displays sinus rhythm, vent rate 63 bpm, QTc 362 CXR on admission at 1:08 AM displays moderate right-sided pneumothorax estimated at 25-30%, no new mediastinal shift Repeat CXR at 3:27 AM displays large right pneumothorax with more than 70% loss of volume, associated mild mediastinal shift to the left Repeat CXR at 4:23 AM s/p chest tube placement displays right apical pneumothorax with bilateral 10-50% loss of height, markedly decreased Troponin <0.012, CBC, coagulation, chemistry all within normal limits. 98.2 F, [place] 91, RR 14, BP 109/68, O2 sat 100% on 3 L nasal cannula 05/05/24. Patient seen and examined. Denies any chest pain or shortness of breath. Thora vent in place 05/06/24 Patient seen and examined today. He reports some chest pain with coughing, as well oozing of blood from site of Thora vent insertion with coughing. Physical examination: Vital signs reviewed General: nontoxic, no distress, appears at stated age Derm: warm, dry, intact Head: atraumatic, normocephalic, symmetric Eyes: EOMI, anicteric sclera Mouth: no lip lesion, mucus membranes moist Cardiovascular: S1 S2 reg, no murmur Lungs: Good air entry bilaterally, Thora vent on right side Abdominal: soft, non-tender to palpataion Extremities: No cyanosis, clubbing, or pedal edema. Neuro: Alert, Oriented, Gross neurological examination did not reveal any focal deficits. Psych: well appearing, appropriate affect Assessment/Plan: Spontaneous idiopathic pneumothorax Acute hypoxic respiratory failure Patient scheduled for thoracoscopic surgery for recurrent right-sided pneumothorax and mechanical pleurodesis today. Clinically and hemodynamically stable Monitor vital signs Monitor CBC and CMP Continue telemetry monitoring Encourage use of incentive spirometer Aggressive bronchopulmonary hygiene Continue pain management Continue IV fluids Continue symtomatic management Continue same treatment DVT prophylaxis: Pneumatic compression sleeve GI prohpylaxis: Protonix 40 mg IV twice daily F: 0.9, denies any emesis but not E replete as required N: N.p.o. for surgery A: Ambulatory Objective - Vital Signs Vital signs: Vital Signs Temp 98.0 F 05/06/24 14:49 Pulse 76 05/06/24 16:53 Resp 15 05/06/24 16:53 BP 127/78 05/06/24 16:53 Pulse Ox 99 05/06/24 16:53 FiO2 Intake & Output 05/05/24 05/06/24 05/06/24 18:59 06:59 18:59 Intake Total 474 1050 Output Total 1900 500 10 Balance -1900 -26 1040 Intake: IV 1050 Oral 474 Output: Urine 1900 500 Estimated Blood Loss 10 Other: # Voids 1 - Labs CBC & Chem 7: 05/06/24 03:04 05/06/24 03:04 Labs: Abnormal Lab Results - Last 24 Hours (Table) 05/06/24 05/06/24 Range/Units 03:04 03:04 RBC 4.30 L (4.40-5.60) X 10*6/uL Hgb 12.8 L (13.0-17.0) g/dL Hct 36.2 L (39.6-50.0) % BUN 7.3 L (9.0-27.0) mg/dL BUN/Creatinine Ratio 8.11 L (12.00-20.00) Ratio Calcium 8.5 L (8.7-10.3) mg/dL Total Protein 5.4 L (6.2-8.2) g/dL Albumin 3.7 L (3.8-4.9) g/dL
[2024-05-06] MEDS: traMADol 50 MG TAB PO PRN (20:00)
--- NOTE | 2024-05-06 21:24 | OP ---
OPERATIVE REPORT DATE OF SERVICE : 05/06/2024 PREOPERATIVE DIAGNOSIS: Right-sided spontaneous pneumothorax. POSTOPERATIVE DIAGNOSIS: Right-sided spontaneous pneumothorax. PROCEDURES: 1. Right VATS, right upper lobe wedge resection. 2. Mechanical pleurodesis. SOURCING SPECIALIST: Kimani. ANESTHESIA: General. SPECIMEN: Right upper lobe wedge. COMPLICATIONS: None. EBL: Minimal. INDICATION: The patient is a 23-year-old male, who presented to the hospital with shortness of breath and right-sided pleuritic pain. Workup revealed a spontaneous pneumothorax. This was the patient's 3rd episode. A right VATS with mechanical pleurodesis was recommended. The risks, benefits, and alternatives to this procedure were discussed with the patient. All of his questions were answered. Consent was obtained. FINDINGS: There were no obvious blebs or bullous disease within the lung parenchyma. There was no pleural effusion. DESCRIPTION OF PROCEDURE: The patient was taken to the operating room and placed supine on the operating table. A double-lumen endotracheal tube was placed by the anesthesia service. Its position was confirmed using a bronchoscope. The patient was then turned to the left lateral decubitus position with the right side up. Care was taken to pad all pressure points. The right chest and flank were then prepped and draped in the usual sterile fashion. With the right lung down, an incision was created in the 7th intercostal space along the posterior axillary line. Dissection was taken down through subcutaneous tissue and the right pleural space was entered bluntly. A thoracoscope was introduced. Two additional working ports were then placed under direct vision. Upon initial inspection, all 3 lobes were inspected and appeared to be free of obvious bleb or bullous disease. There was no studding along the chest wall. There was no pleural effusion. The right upper lobe apex was then wedge resected using a stapling device with multiple purple loads. The specimen was then sent to pathology. The staple line was intact and hemostatic. Mechanical pleurodesis was then performed along the parietal pleura of the right chest wall taking care to focus especially on the apex. A straight 28-Cambodian chest tube was then placed and directed toward the apex. It was secured to the skin using a suture. Hemostasis was assured. The right lung was then inflated under direct vision and appeared to expand nicely. All 3 working ports were then closed in multiple layers. Sterile dressing was applied. The patient appeared to tolerate the procedure well. No immediate complications. He was extubated without complication and returned to recovery room in stable condition. ALDOL / IJN: [id number] /
[2024-05-07 07:46] LABS: African American GFR (CKD) >90 (>60 ml/min/1.73 sqM); Anion Gap 4 mmol/L; Blood Urea Nitrogen 6 mg/dL (9-20); Calcium 8.8 mg/dL (8.4-10.2); Carbon Dioxide 31 mmol/L (22-30); Chloride 99 mmol/L (98-107); Glucose 134 mg/dL (74-99); Non-African American GFR(CKD) >90 (>60 ml/min/1.73 sqM); Potassium 3.6 mmol/L (3.5-5.1); Sodium 134 mmol/L (137-145)
[2024-05-07 07:55] LABS: Basophils % (A) 0 %; Eosinophils % (A) 0 %; HCT 39.8 % (39.0-53.0); HGB 13.7 gm/dL (13.0-17.5); Lymphocytes # (A) 0.9 k/uL (1.0-4.8); Lymphocytes % (A) 9 %; MCH 29.6 pg (25.0-35.0); MCHC 34.5 g/dL (31.0-37.0); MCV 85.7 fL (80.0-100.0); Mean Platelet Volume 6.8; Monocytes # (A) 0.7 k/uL (0-1.0); Monocytes % (A) 7 %; Neutrophils # (A) 7.9 k/uL (1.3-7.7); Neutrophils % (A) 83 %; Platelet Count 217 k/uL (150-450); RBC 4.65 m/uL (4.30-5.90); RDW 12.5 % (11.5-15.5); WBC 9.6 k/uL (3.8-10.6)
[2024-05-07] MEDS: SENNOSIDES-DOCUSATE SODIUM 1 EACH TAB PO SCH (08:07)
--- NOTE | 2024-05-07 09:23 | XR ---
EXAMINATION TYPE: XR chest 1V portable DATE OF EXAM: 05/07/2024 7:25 AM COMPARISON: 05/06/2024 CLINICAL INDICATION: Male, 23 years old with history of post VATS, TECHNIQUE: XR chest 1V portable view(s) obtained. FINDINGS: The heart size is normal. The pulmonary vasculature is normal. The lungs are clear. Right-sided chest tube is present. Previous right apical pneumothorax not ident ified. IMPRESSION: 1. No acute pulmonary process. 2. Stable right-sided chest tube remain no pneumothorax. [facility], , 05/07/2024 9:20 AM
--- NOTE | 2024-05-07 09:58 | P.PN ---
Subjective Progress Note Date: 05/07/24 Principal diagnosis: Recurrent spontaneous right-sided pneumothorax. History of previous tobacco dependence/vaping, occasional marijuana use POD #1 right VATS, right upper lobe wedge resection, mechanical pleurodesis The patient was seen and examined sitting up in the recliner on the cardiac stepdown unit in no acute distress. Right pleural chest tube remains to continuous wall suction, minimal tiny airleak present with coughing. Patient remains on room air with oxygen saturation 100%. He is asking for pain medication, continues to be on multiple narcotics. Remains in sinus rhythm, hemodynamically stable. No other new concerns. Objective - Vital Signs Vital signs: Vital Signs Temp 97.9 F 05/07/24 07:33 Pulse 98 05/07/24 07:33 Resp 16 05/07/24 09:06 BP 124/73 05/07/24 07:33 Pulse Ox 98 05/07/24 07:33 FiO2 Intake & Output 05/06/24 05/07/24 05/07/24 18:59 06:59 18:59 Intake Total 1050 Output Total 2410 1582 Balance -1360 -1582 Intake: IV 1050 Output: Urine 2400 1550 Straight 1200 1100 Post Void Residual 32 Estimated Blood Loss 10 - Exam CONSTITUTIONAL: Appears comfortable, cooperative, no acute distress RESPIRATORY: Lungs sounds diminished on the right. Respirations even, nonlabored. Currently on room air with oxygen saturation 100%. Able to achieve 1500 mL on incentive spirometry. Strong cough. CARDIOVASCULAR: S1, S2 present. Regular rate and rhythm. Palpable peripheral pulses bilaterally. No edema present. No calf pain or tenderness noted GASTROINTESTINAL: Abdomen soft, nontender, nondistended. Active bowel sounds present 4 quadrants. Tolerating diet GENITOURINARY: Continues to void INTEGUMENTARY: Skin is warm and dry NEUROLOGIC: Cranial nerves II through XII intact MUSKULOSKELETAL: Able to move all extremities, strength equal bilaterally, gait normal PSYCHIATRIC: Alert and oriented to person place and time, appropriate affect, intact judgment and insight INVASIVE LINES AND TUBES: Right sided chest tube present to continuous wall suction, tiny airleak with coughing - Allied health notes Allied health notes reviewed: nursing - Labs CBC & Chem 7: 05/07/24 07:05 05/07/24 07:05 Labs: Abnormal Lab Results - Last 24 Hours (Table) 05/07/24 05/07/24 Range/Units 07:05 07:05 Neutrophils # 7.9 H (1.3-7.7) k/uL Lymphocytes # 0.9 L (1.0-4.8) k/uL Sodium 134 L (137-145) mmol/L Carbon Dioxide 31 H (22-30) mmol/L BUN 6 L (9-20) mg/dL Glucose 134 H (74-99) mg/dL - Imaging and Cardiology Chest x-ray: report reviewed, image reviewed Assessment and Plan Assessment: Recurrent spontaneous right-sided pneumothorax, status post placement of Thora- vent by the emergency room physicians, status post right VATS with mechanical pleurodesis History of previous tobacco dependence/vaping Occasional marijuana use Plan: Will place chest tube to waterseal Encourage incentive spirometry use Increase activity as tolerated Pain control per current medication regimen Medical management of other comorbidities per internal medicine service More recommendations to follow
--- NOTE | 2024-05-07 13:42 | P.PN ---
Subjective Progress Note Date: 05/07/24 23-year-old white male with a history of spontaneous pneumothorax, previously, twice, in October, in March 2021. The patient presented to the emergency department on May 04, complaining of shortness of breath, right-sided chest pain. The patient was discovered to have another right-sided pneumothorax, and a Thora vent device was placed. The patient states that he does not currently smoke. He used to smoke in the past. He does smoke marijuana from time to time. He does not vape. He was seen by surgery on his previous 2 occasions, back in 2020, once by Dr. Dolan, and once by Dr. Holcomb. Cardiothoracic surgery, has been consulted at this time. The patient is currently on 3 L of oxygen. He is getting saline at 30 cc an hour. CBC is completely normal. Coagulation studies are normal. Glucose is 102, otherwise a comprehensive metabolic profile was completely normal. Initial chest x-ray shows moderate right-sided pneumothorax. A repeat x-ray, after Thora vent placement, showed a small 10 to 15% right apical pneumothorax. The patient is seen today May 05, 2024 follow-up on the regular medical floor. He is currently resting in bed. Awake and alert in no acute distress. Continue good O2 saturations up to 100% on 3 L/min per nasal cannula. He is afebrile. Hemodynamically stable. CT of the chest reveals trace right pneumothorax. Thora vent in place Pleur-evac and continuous wall suction. No leak present currently. Sodium 140. Potassium 4.0. Bicarb 24. BUN 11. Creatinine 0.8. Glucose 96.. Working with the incentive spirometer. On 05/06/2024, the patient is being seen for a follow-up. The patient will be taken to the operating room to undergo a video-assisted thoracoscopic surgery with mechanical pleurodesis as the patient has developed recurrent spontaneous right-sided pneumothorax. This morning, the patient is on 3 days of oxygen by nasal cannula with a pulse ox of 99 to 100%. Denies having any significant shortness of breath. Hemodynamically stable. Thora vent is still present in the right chest. No other new complaints otherwise for now. Blood work from today shows a white cell count of 6.7 with a hemoglobin 12.8 and a platelet c ount of 215. Electrolytes are all within normal limits. On 05/07/2024, the patient is being seen for a follow-up. The patient is postop day #1. The patient underwent a thoracoscopic wedge resection of the right upper lobe and mechanical pleurodesis. The patient is complaining of pain across his right chest and the pain is around 8 out of 10 in severity and the patient receiving combination of Toradol, [place] and tramadol. The chest tube is in a good location there is no evidence of any air leak. The chest x-ray from today shows no evidence of any pneumothorax. The patient remains hemodyn amically stable. The WBC count is at 9.6 with a hemoglobin 13.7 and a platelet count of 217. BUN is 6 with a creatinine of 0.8 and a sodium levels at 134. No other significant events overnight. The patient is stable at this point in time. Objective - Vital Signs Vital signs: Vital Signs Temp 97.9 F 05/07/24 11:01 Pulse 99 05/07/24 11:01 Resp 16 05/07/24 10:13 BP 118/75 05/07/24 11:01 Pulse Ox 99 05/07/24 11:01 FiO2 Intake & Output 05/06/24 05/07/24 05/07/24 18:59 06:59 18:59 Intake Total 1050 Output Total 2410 1582 Balance -1360 -1582 Intake: IV 1050 Output: Urine 2400 1550 Straight 1200 1100 Post Void Residual 32 Estimated Blood Loss 10 - Exam GENERAL EXAM: Alert, pleasant 23-year-old male, on room air oxygen fairly comfortable in no apparent distress. HEAD: Normocephalic. EYES: Normal reaction of pupils, equal size. NOSE: Clear with pink turbinates. THROAT: No erythema or exudates. NECK: No masses, no JVD. CHEST: Right sided chest tube is in place. No evidence of any air leak. LUNGS: Equal air entry with no crackles, wheeze, rhonchi or dullness. CVS: S1 and S2 normal with no audible murmur, regular rhythm. ABDOMEN: No hepatosplenomegaly, normal bowel sounds, no guarding or rigidity. SPINE: No scoliosis or deformity SKIN: No rashes CENTRAL NERVOUS SYSTEM: No focal deficits, tone is normal in all 4 extremities. EXTREMITIES: There is no peripheral edema. No clubbing, no cyanosis. Peripheral pulses are intact. - Labs CBC & Chem 7: 05/07/24 07:05 05/07/24 07:05 Labs: Abnormal Lab Results - Last 24 Hours (Table) 05/07/24 05/07/24 Range/Units 07:05 07:05 Neutrophils # 7.9 H (1.3-7.7) k/uL Lymphocytes # 0.9 L (1.0-4.8) k/uL Sodium 134 L (137-145) mmol/L Carbon Dioxide 31 H (22-30) mmol/L BUN 6 L (9-20) mg/dL Glucose 134 H (74-99) mg/dL Assessment and Plan Plan: Spontaneous pneumothorax, right side, x 3. Previously, he had pneumothorax, in October and March 2024. The patient status post thoracoscopic wedge resection of the right upper lobe and the right-sided chest tube insertion and mechanical pleurodesis. No evidence of pneumothorax on today's chest x-ray. No evidence of any air leak. She is right-sided chest wall pain secondary to above Previous history of tobacco dependence/vaping No other significant past medical history Plan: Patient currently on room air oxygen Monitor chest tube output and airleak Pain control Repeat chest x-ray in the morning Working well with the incentive spirometer Increase his activity as tolerated We will continue to follow
--- NOTE | 2024-05-07 15:19 | P.PN ---
Subjective Progress Note Date: 05/07/24 Principal diagnosis: Hospital course: Patient is a 23-year-old male with a PMH of spontaneous right-sided pneumothorax (10/2020 and 03/2021) presenting with right-sided chest pain. Patient reports he was playing a video game and felt his heart started to race. Shortly after he had a sudden onset of right-sided chest pain. Described as a sharp chest pain made worse when taking a deep breath. The chest pain is non-radiating. When asked he says the pain feels different from the last time he had a pneumothorax. Denies any trauma, fever, chills. Patient admits to dry cough but denies any hemoptysis or sputum production. Denies any abdominal pain, nausea, vomiting, diarrhea, diaphoresis, urinary symptoms. Per ED patient denies any history of sudden cardiac , ACS, CVA/TIA. Has history of smoking/vaping. EKG independently interpreted displays sinus rhythm, vent rate 63 bpm, QTc 362 CXR on admission at 1:08 AM displays moderate right-sided pneumothorax estimated at 25-30%, no new mediastinal shift Repeat CXR at 3:27 AM displays large right pneumothorax with more than 70% loss of volume, associated mild mediastinal shift to the left Repeat CXR at 4:23 AM s/p chest tube placement displays right apical pneumothorax with bilateral 10-50% loss of height, markedly decreased Troponin <0.012, CBC, coagulation, chemistry all within normal limits. 98.2 F, OR 91, RR 14, BP 109/68, O2 sat 100% on 3 L nasal cannula 05/05/24. Patient seen and examined. Denies any chest pain or shortness of breath. Thora vent in place 05/06/24 Patient seen and examined today. He reports some chest pain with coughing, as well oozing of blood from site of Thora vent insertion with coughing. 05/07/24: Patient seen and examined today. Patient received right VATS, right upper lobe wedge resection and mechanical pleurodesis yesterday. He complains of right sided chest pain and back pain with deep breathing and coughing. Chest x- ray done today shows no acute pulmonary process, stable right-sided chest tube and no pneumothorax. Review of systems: Pertinent positives and negatives as discussed in HPI, a complete review of systems was performed and all other systems are negative. Vitals: Signs Reviewed Physical examination: General: nontoxic, no distress, appears at stated age Derm: warm, dry, intact Head: atraumatic, normocephalic, symmetric Eyes: EOMI, anicteric sclera Mouth: no lip lesion, mucus membranes moist Cardiovascular: S1 S2 reg, no murmur Lungs: Good air entry bilaterally, Thora vent on right side Abdominal: soft, non-tender to palpataion Extremities: No cyanosis, clubbing, or pedal edema. Neuro: Alert, Oriented, Gross neurological examination did not reveal any focal deficits. Psych: well appearing, appropriate affect Assessment/Plan: #.Spontaneous idiopathic pneumothorax #.Acute hypoxic respiratory failure Patient received right VATS, right upper lobe wedge resection and mechanical pleurodesis yesterday Chest tube placed to waterseal Clinically and hemodynamically stable Continue IV fluids Continue pain management Continue symtomatic management Encourage use of incentive spirometer Cefazolin 2 g IVPB every 8 hours 2 bags Monitor vital signs Monitor CBC and CMP #.Mild Hyponatremia Na 134 Monitor BMP #. Constipation Conitnue Sennosides-Docusate 2 each PO HS F: 0.9 normal saline at 70 ml/hr E replete as required N: Regular diet A: Ambulatory DVT prophylaxis: Pneumatic compression sleeve GI prohpylaxis: Protonix 40 mg IV twice daily Objective - Vital Signs Vital signs: Vital Signs Temp 97.9 F 05/07/24 07:33 Pulse 98 05/07/24 07:33 Resp 18 05/07/24 07:33 BP 124/73 05/07/24 07:33 Pulse Ox 98 05/07/24 07:33 FiO2 Intake & Output 05/06/24 05/07/24 05/07/24 18:59 06:59 18:59 Intake Total 1050 Output Total 2410 1582 Balance -1360 -1582 Intake: IV 1050 Output: Urine 2400 1550 Straight 1200 1100 Post Void Residual 32 Estimated Blood Loss 10 - Labs CBC & Chem 7: 05/07/24 07:05 05/07/24 07:05 Labs: Abnormal Lab Results - Last 24 Hours (Table) 05/06/24 05/06/24 05/07/24 Range/Units 03:04 03:04 07:05 RBC 4.30 L (4.40-5.60) X 10*6/uL Hgb 12.8 L (13.0-17.0) g/dL Hct 36.2 L (39.6-50.0) % Neutrophils # 7.9 H (1.3-7.7) k/uL Lymphocytes # 0.9 L (1.0-4.8) k/uL Sodium (137-145) mmol/L Carbon Dioxide (22-30) mmol/L BUN 7.3 L (9.0-27.0) mg/dL BUN/Creatinine Ratio 8.11 L (12.00-20.00) Ratio Glucose (74-99) mg/dL Calcium 8.5 L (8.7-10.3) mg/dL Total Protein 5.4 L (6.2-8.2) g/dL Albumin 3.7 L (3.8-4.9) g/dL 05/07/24 Range/Units 07:05 RBC (4.40-5.60) X 10*6/uL Hgb (13.0-17.0) g/dL Hct (39.6-50.0) % Neutrophils # (1.3-7.7) k/uL Lymphocytes # (1.0-4.8) k/uL Sodium 134 L (137-145) mmol/L Carbon Dioxide 31 H (22-30) mmol/L BUN 6 L (9.0-27.0) mg/dL BUN/Creatinine Ratio (12.00-20.00) Ratio Glucose 134 H (74-99) mg/dL Calcium (8.7-10.3) mg/dL Total Protein (6.2-8.2) g/dL Albumin (3.8-4.9) g/dL
[2024-05-07] MEDS: ACETAMINOPHEN TAB 325 MG TAB PO PRN (18:33)
--- NOTE | 2024-05-08 07:31 | XR ---
EXAMINATION TYPE: XR chest 1V DATE OF EXAM: 05/08/2024 6:47 AM COMPARISON: 05/07/2024 CLINICAL INDICATION: Male, 23 years old with history of post VATS, TECHNIQUE: XR chest 1V view(s) obtained. FINDINGS: The heart size is normal. The pulmonary vasculature is normal. Right-sided chest tube is present. There is a small right apical pneumothorax minimal atelectasis at the left base IMPRESSION: 1. Small developing apical pneumothorax and right-sided chest tube remains in position. [facility], , 05/08/2024 7:28 AM
--- NOTE | 2024-05-08 07:48 | P.PN ---
Subjective Progress Note Date: 05/08/24 Principal diagnosis: Recurrent spontaneous right-sided pneumothorax. History of previous tobacco dependence/vaping, occasional marijuana use POD #2 right VATS, right upper lobe wedge resection, mechanical pleurodesis The patient was seen and examined sitting up in the recliner on the cardiac stepdown unit in no acute distress although does complain of expected postsurgical pain, asking for pain medication as often as he can have it. Right pleural chest tube remains to continuous wall suction, no airleak present this morning. Patient remains on room air with oxygen saturation in the mid 90s. Remains in sinus tach, hemodynamically stable. Chest x-ray reviewed, reporting small apical pneumothorax however patient had wedge resection of the right apex, reviewing all x-rays lung looks similar to yesterday. No other new concerns. Objective - Vital Signs Vital signs: Vital Signs Temp 98.7 F 05/08/24 07:04 Pulse 98 05/08/24 07:04 Resp 16 05/08/24 07:04 BP 128/72 05/08/24 07:04 Pulse Ox 98 05/08/24 07:04 FiO2 Intake & Output 05/07/24 05/08/24 05/08/24 18:59 06:59 18:59 Weight 79.2 kg Other: Voiding Method Toilet - Exam CONSTITUTIONAL: Appears comfortable, cooperative, no acute distress RESPIRATORY: Lungs sounds clear bilaterally. Respirations even, nonlabored. Currently on room air with oxygen saturation 94%. Able to achieve 1500 mL on incentive spirometry. Strong cough. CARDIOVASCULAR: S1, S2 present. Regular rate and rhythm, sinus tach on telemetry. Palpable peripheral pulses bilaterally. No edema present. No calf pain or tenderness noted GASTROINTESTINAL: Abdomen soft, nontender, nondistended. Active bowel sounds present 4 quadrants. Tolerating diet GENITOURINARY: Continues to void INTEGUMENTARY: Skin is warm and dry NEUROLOGIC: Cranial nerves II through XII intact MUSKULOSKELETAL: Able to move all extremities, strength equal bilaterally, gait normal PSYCHIATRIC: Alert and oriented to person place and time, appropriate affect, intact judgment and insight INVASIVE LINES AND TUBES: Right sided chest tube present to continuous wall suction, no airleak present - Allied health notes Allied health notes reviewed: nursing - Labs CBC & Chem 7: 05/07/24 07:05 05/07/24 07:05 Labs: Abnormal Lab Results - Last 24 Hours (Table) 05/07/24 05/07/24 Range/Units 07:05 07:05 Neutrophils # 7.9 H (1.3-7.7) k/uL Lymphocytes # 0.9 L (1.0-4.8) k/uL Sodium 134 L (137-145) mmol/L Carbon Dioxide 31 H (22-30) mmol/L BUN 6 L (9-20) mg/dL Glucose 134 H (74-99) mg/dL - Imaging and Cardiology Chest x-ray: report reviewed, image reviewed Assessment and Plan Assessment: Recurrent spontaneous right-sided pneumothorax, status post placement of Thora- vent by the emergency room physicians, status post right VATS with mechanical pleurodesis History of previous tobacco dependence/vaping Occasional marijuana use Plan: Will place chest tube to waterseal Encourage incentive spirometry use Increase activity as tolerated Pain control per current medication regimen, recommend backing off IV narcotics Medical management of other comorbidities per internal medicine service More recommendations to follow
[2024-05-08 08:52] LABS: HCT 40.6 % (39.0-53.0); HGB 13.7 gm/dL (13.0-17.5); MCH 29.3 pg (25.0-35.0); MCHC 33.8 g/dL (31.0-37.0); MCV 86.7 fL (80.0-100.0); Mean Platelet Volume 7.2; Platelet Count 225 k/uL (150-450); RBC 4.68 m/uL (4.30-5.90); RDW 12.5 % (11.5-15.5); WBC 13.4 k/uL (3.8-10.6)
[2024-05-08 09:07] LABS: African American GFR (CKD) >90 (>60 ml/min/1.73 sqM); Anion Gap 7 mmol/L; Blood Urea Nitrogen 6 mg/dL (9-20); Calcium 8.8 mg/dL (8.4-10.2); Carbon Dioxide 30 mmol/L (22-30); Chloride 96 mmol/L (98-107); Glucose 113 mg/dL (74-99); Non-African American GFR(CKD) >90 (>60 ml/min/1.73 sqM); Potassium 3.6 mmol/L (3.5-5.1); Sodium 133 mmol/L (137-145)
--- NOTE | 2024-05-08 12:32 | P.PN ---
Subjective Progress Note Date: 05/08/24 23-year-old white male with a history of spontaneous pneumothorax, previously, twice, in October, in March 2021. The patient presented to the emergency department on May 04, complaining of shortness of breath, right-sided chest pain. The patient was discovered to have another right-sided pneumothorax, and a Thora vent device was placed. The patient states that he does not currently smoke. He used to smoke in the past. He does smoke marijuana from time to time. He does not vape. He was seen by surgery on his previous 2 occasions, back in 2020, once by Dr. Dolan, and once by Dr. Holcomb. Cardiothoracic surgery, has been consulted at this time. The patient is currently on 3 L of oxygen. He is getting saline at 30 cc an hour. CBC is completely normal. Coagulation studies are normal. Glucose is 102, otherwise a comprehensive metabolic profile was completely normal. Initial chest x-ray shows moderate right-sided pneumothorax. A repeat x-ray, after Thora vent placement, showed a small 10 to 15% right apical pneumothorax. The patient is seen today May 05, 2024 follow-up on the regular medical floor. He is currently resting in bed. Awake and alert in no acute distress. Continue good O2 saturations up to 100% on 3 L/min per nasal cannula. He is afebrile. Hemodynamically stable. CT of the chest reveals trace right pneumothorax. Thora vent in place Pleur-evac and continuous wall suction. No leak present currently. Sodium 140. Potassium 4.0. Bicarb 24. BUN 11. Creatinine 0.8. Glucose 96.. Working with the incentive spirometer. On 05/06/2024, the patient is being seen for a follow-up. The patient will be taken to the operating room to undergo a video-assisted thoracoscopic surgery with mechanical pleurodesis as the patient has developed recurrent spontaneous right-sided pneumothorax. This morning, the patient is on 3 days of oxygen by nasal cannula with a pulse ox of 99 to 100%. Denies having any significant shortness of breath. Hemodynamically stable. Thora vent is still present in the right chest. No other new complaints otherwise for now. Blood work from today shows a white cell count of 6.7 with a hemoglobin 12.8 and a platelet c ount of 215. Electrolytes are all within normal limits. On 05/07/2024, the patient is being seen for a follow-up. The patient is postop day #1. The patient underwent a thoracoscopic wedge resection of the right upper lobe and mechanical pleurodesis. The patient is complaining of pain across his right chest and the pain is around 8 out of 10 in severity and the patient receiving combination of Toradol, [place] and tramadol. The chest tube is in a good location there is no evidence of any air leak. The chest x-ray from today shows no evidence of any pneumothorax. The patient remains hemodyn amically stable. The WBC count is at 9.6 with a hemoglobin 13.7 and a platelet count of 217. BUN is 6 with a creatinine of 0.8 and a sodium levels at 134. No other significant events overnight. The patient is stable at this point in time. On 05/08/2024, the patient is being seen for a follow-up. The patient is postop day #2. Right-sided chest tube in place and the patient has a small right a pical pneumothorax on today's evaluation. There is no evidence of any air leak coming out of the chest tube. The patient is postop day #2 following a right upper lobe wedge resection and mechanical pleurodesis. Pain is under better control. Incentive spirometer. He is currently on Toradol, tramadol and Dilaudid for pain control. The patient's white cell count is 13.4, hemoglobin 13.7, BUN 6 mg and 0.8 and a sodium levels at 133. Objective - Vital Signs Vital signs: Vital Signs Temp 98.7 F 05/08/24 07:04 Pulse 98 05/08/24 07:04 Resp 16 05/08/24 07:04 BP 128/72 05/08/24 07:04 Pulse Ox 94 L 05/08/24 09:28 FiO2 Intake & Output 05/07/24 05/08/24 05/08/24 18:59 06:59 18:59 Intake Total 128 Output Total 30 Balance 98 Weight 79.2 kg Intake: IV 10 Invasive Line 2 10 Oral 118 Output: Chest Tube Drainage 30 Thora-Vent 30 Other: Voiding Method Toilet Toilet - Exam GENERAL EXAM: Alert, pleasant 23-year-old male, on room air oxygen fairly comfortable in no apparent distress. HEAD: Normocephalic. EYES: Normal reaction of pupils, equal size. NOSE: Clear with pink turbinates. THROAT: No erythema or exudates. NECK: No masses, no JVD. CHEST: Right sided chest tube is in place. No evidence of any air leak. LUNGS: Equal air entry with no crackles, wheeze, rhonchi or dullness. CVS: S1 and S2 normal with no audible murmur, regular rhythm. ABDOMEN: No hepatosplenomegaly, normal bowel sounds, no guarding or rigidity. SPINE: No scoliosis or deformity SKIN: No rashes CENTRAL NERVOUS SYSTEM: No focal deficits, tone is normal in all 4 extremities. EXTREMITIES: There is no peripheral edema. No clubbing, no cyanosis. Peripheral pulses are intact. - Labs CBC & Chem 7: 05/08/24 07:43 05/08/24 07:43 Labs: Abnormal Lab Results - Last 24 Hours (Table) 05/08/24 05/08/24 Range/Units 07:43 07:43 WBC 13.4 H (3.8-10.6) k/uL Sodium 133 L (137-145) mmol/L Chloride 96 L (98-107) mmol/L BUN 6 L (9-20) mg/dL Glucose 113 H (74-99) mg/dL Assessment and Plan Plan: Spontaneous pneumothorax, right side, x 3. Previously, he had pneumothorax, in October and March 2024. The patient status post thoracoscopic wedge resection of the right upper lobe and the right-sided chest tube insertion and mechanical pleurodesis. Tiny right apical pneumothorax on today's chest x-ray. No evidence of any air leak. Pain is under better control. She is right-sided chest wall pain secondary to above, improved Previous history of tobacco dependence/vaping No other significant past medical history Plan: Patient currently on room air oxygen Monitor chest tube output and there is no air leak in the chest tube in place to waterseal. Pain control Repeat chest x-ray in the morning Working well with the incentive spirometer Increase his activity as tolerated We will continue to follow
[2024-05-08] MEDS: MAGNESIUM HYDROXIDE 2,400 MG/30 ML CUP PO PRN (14:42)
--- NOTE | 2024-05-08 15:04 | P.PN ---
Subjective Progress Note Date: 05/08/24 Principal diagnosis: Hospital course: Patient is a 23-year-old male with a PMH of spontaneous right-sided pneumothorax (10/2020 and 03/2021) presenting with right-sided chest pain. Patient reports he was playing a video game and felt his heart started to race. Shortly after he had a sudden onset of right-sided chest pain. Described as a sharp chest pain made worse when taking a deep breath. The chest pain is non-radiating. When asked he says the pain feels different from the last time he had a pneumothorax. Denies any trauma, fever, chills. Patient admits to dry cough but denies any hemoptysis or sputum production. Denies any abdominal pain, nausea, vomiting, diarrhea, diaphoresis, urinary symptoms. Per ED patient denies any history of sudden cardiac , ACS, CVA/TIA. Has history of smoking/vaping. EKG independently interpreted displays sinus rhythm, vent rate 63 bpm, QTc 362 CXR on admission at 1:08 AM displays moderate right-sided pneumothorax estimated at 25-30%, no new mediastinal shift Repeat CXR at 3:27 AM displays large right pneumothorax with more than 70% loss of volume, associated mild mediastinal shift to the left Repeat CXR at 4:23 AM s/p chest tube placement displays right apical pneumothorax with bilateral 10-50% loss of height, markedly decreased Troponin <0.012, CBC, coagulation, chemistry all within normal limits. 98.2 F, DC 91, RR 14, BP 109/68, O2 sat 100% on 3 L nasal cannula 05/05/24. Patient seen and examined. Denies any chest pain or shortness of breath. Thora vent in place 05/06/24 Patient seen and examined today. He reports some chest pain with coughing, as well oozing of blood from site of Thora vent insertion with coughing. 05/07/24: Patient seen and examined today. Patient received right VATS, right upper lobe wedge resection and mechanical pleurodesis yesterday. He complains of right sided chest pain and back pain with deep breathing and coughing. Chest x- ray done today shows no acute pulmonary process, stable right-sided chest tube and no pneumothorax. 05/08/24: Patient seen and examined at bedside. No acute events overnight. He notes an improvement in his chest pain. Complains of back pain on the right side. Right sided chest tube placed to waterseal. No evidence of air leak. Chest x-ray today shows small developing apical pneumothorax and right-sided chest tube remains in position. Review of systems: Pertinent positives and negatives as discussed in HPI, a complete review of systems was performed and all other systems are negative. Vitals: Signs Reviewed Physical examination: Vital signs reviewed General: nontoxic, no distress, appears at stated age Derm: warm, dry, intact Head: atraumatic, normocephalic, symmetric Eyes: EOMI, anicteric sclera Mouth: no lip lesion, mucus membranes moist Cardiovascular: S1 S2 reg, no murmur Lungs: Good air entry bilaterally, Right sided chest tube placed to waterseal Abdominal: soft, non-tender to palpataion Extremities: No cyanosis, clubbing, or pedal edema. Neuro: Alert, Oriented, Gross neurological examination did not reveal any focal deficits. Psych: well appearing, appropriate affect Assessment/Plan: #.Spontaneous idiopathic pneumothorax #.Acute hypoxic respiratory failure Patient received right VATS, right upper lobe wedge resection and mechanical pleurodesis yesterday Chest tube placed to waterseal Chest x-ray today shows small developing apical pneumothorax and right-sided chest tube remains in position. Clinically and hemodynamically stable Continue 0.9 normal saline at 70 ml/hr Continue Tramadol 50mg PO Q6H PRN, Ketorolac 15 mg IVP Q6HR PRN, Dilaudid 1mg IVP Q3HR PRN and Acetaminophen 650 mg PO Q6HR PRN for pain management Encourage use of incentive spirometer Obtain Chest xray tomorrow #.Mild Hyponatremia Na 133 Monitor BMP #.Anxiety Continue Xanax 0.25 mg PO Q6HR PRN #. Constipation/Indigestion Conitnue Sennosides-Docusate 2 each PO HS and magnesium hydroxide 2400mg PO Daily PRN Continue Maalox 15 ml PO Q6HR PRN #.Heartburn Continue Calcium carbonate 1000mg PO Q4HR PRN F: 0.9 normal saline at 70 ml/hr E replete as required N: Regular diet A: Ambulatory DVT prophylaxis: Pneumatic compression sleeve, Enoxaparin 40 mg SQ daily GI prohpylaxis: Protonix 40 mg IV twice daily Objective - Vital Signs Vital signs: Vital Signs Temp 98.7 F 05/08/24 07:04 Pulse 98 05/08/24 07:04 Resp 16 05/08/24 07:04 BP 128/72 05/08/24 07:04 Pulse Ox 98 05/08/24 07:04 FiO2 Intake & Output 05/07/24 05/08/24 05/08/24 18:59 06:59 18:59 Weight 79.2 kg Other: Voiding Method Toilet - Labs CBC & Chem 7: 05/08/24 07:43 05/08/24 07:43 Labs: Abnormal Lab Results - Last 24 Hours (Table) 05/07/24 05/07/24 Range/Units 07:05 07:05 Neutrophils # 7.9 H (1.3-7.7) k/uL Lymphocytes # 0.9 L (1.0-4.8) k/uL Sodium 134 L (137-145) mmol/L Carbon Dioxide 31 H (22-30) mmol/L BUN 6 L (9-20) mg/dL Glucose 134 H (74-99) mg/dL
--- NOTE | 2024-05-08 22:05 | XR ---
EXAMINATION TYPE: XR chest 1V portable DATE OF EXAM: 05/08/2024 8:56 PM COMPARISON: 05/08/2024 CLINICAL INDICATION: Male, 23 years old with history of chest tube placement; [facility]LY [facility] TECHNIQUE: XR chest 1V portable Frontal view of the chest. FINDINGS: Lungs/Pleura: Left basilar atelectasis. There is no evidence of pleural effusion, focal consolidation , or left pneumothorax. Pulmonary vascularity: Unremarkable. Heart/mediastinum: Cardiomediastinal silhouette is unremarkable. Musculoskeletal: No acute osseous pathology. Other findings: None Lines/Tubes: Right thoracotomy tube with trace pneumothorax. IMPRESSION: Right thoracotomy tube with trace pneumothorax. [facility], , 05/08/2024 10:02 PM
[2024-05-09 07:32] LABS: HCT 36.5 % (39.0-53.0); HGB 12.6 gm/dL (13.0-17.5); MCH 29.8 pg (25.0-35.0); MCHC 34.6 g/dL (31.0-37.0); MCV 86.1 fL (80.0-100.0); Mean Platelet Volume 7.1; Platelet Count 198 k/uL (150-450); RBC 4.24 m/uL (4.30-5.90); RDW 12.6 % (11.5-15.5); WBC 7.5 k/uL (3.8-10.6)
[2024-05-09 07:49] LABS: African American GFR (CKD) >90 (>60 ml/min/1.73 sqM); Anion Gap 4 mmol/L; Blood Urea Nitrogen 5 mg/dL (9-20); Calcium 8.7 mg/dL (8.4-10.2); Carbon Dioxide 33 mmol/L (22-30); Chloride 99 mmol/L (98-107); Glucose 94 mg/dL (74-99); Non-African American GFR(CKD) >90 (>60 ml/min/1.73 sqM); Sodium 136 mmol/L (137-145)
--- NOTE | 2024-05-09 08:12 | XR ---
EXAMINATION TYPE: XR chest 2V DATE OF EXAM: 05/09/2024 6:29 AM COMPARISON: 05/08/2024 CLINICAL INDICATION: Male, 23 years old with history of Pneumothorax, TECHNIQUE: XR chest 2V view(s) obtained. FINDINGS: The heart size is normal. The pulmonary vasculature is normal. Very minimal right apical pneumothorax remains present. Right-sided chest tube is present right apex. Some platelike atelectasis at the left lung base. Posterior pleural effusion is present IMPRESSION: 1. Minimal stable right apical pneumothorax with right-sided chest tube. 2. Left lower lobe platelike atelectasis. [facility], , 05/09/2024 8:10 AM
--- NOTE | 2024-05-09 08:43 | P.PN ---
Subjective Progress Note Date: 05/09/24 Principal diagnosis: Recurrent spontaneous right-sided pneumothorax. History of previous tobacco dependence/vaping, occasional marijuana use POD #3 right VATS, right upper lobe wedge resection, mechanical pleurodesis The patient was seen and examined sitting up in the recliner on the cardiac stepdown unit in no acute distress although does complain of expected postsurgical pain, asking for pain medication as often as he can have it. Right pleural chest tube placed to waterseal yesterday, no airleak present for 24 hours, patient did ambulate 4 times around the hallway yesterday. Apparently chest x-ray was obtained last night because patient was concerned with some jason inage around the chest tube site, chest x-ray remains unchanged. He remains on room air with oxygen saturation in the high 90s. Currently in sinus rhythm, hemodynamically stable. No other new concerns. Objective - Vital Signs Vital signs: Vital Signs Temp 98.4 F 05/09/24 07:27 Pulse 83 05/09/24 07:27 Resp 16 05/09/24 07:27 BP 121/74 05/09/24 07:27 Pulse Ox 98 05/09/24 07:27 FiO2 Intake & Output 05/08/24 05/09/24 05/09/24 18:59 06:59 18:59 Intake Total 860 128 Output Total 90 20 Balance 770 -20 128 Weight 79 kg Intake: IV 30 10 Invasive Line 2 10 Invasive Line 3 20 10 Oral 830 118 Output: Chest Tube Drainage 90 20 Thora-Vent 90 20 Other: Voiding Method Toilet Toilet # Voids 2 # Bowel Movements 1 - Exam CONSTITUTIONAL: Appears comfortable, cooperative, no acute distress RESPIRATORY: Lungs sounds clear bilaterally. Respirations even, nonlabored. Currently on room air with oxygen saturation 96%. Able to achieve 1500 mL on incentive spirometry. Strong cough. CARDIOVASCULAR: S1, S2 present. Regular rate and rhythm, sinus rhythm on telemetry. Palpable peripheral pulses bilaterally. No edema present. No calf pain or tenderness noted GASTROINTESTINAL: Abdomen soft, nontender, nondistended. Active bowel sounds present 4 quadrants. Tolerating diet GENITOURINARY: Continues to void INTEGUMENTARY: Skin is warm and dry NEUROLOGIC: Cranial nerves II through XII intact MUSKULOSKELETAL: Able to move all extremities, strength equal bilaterally, gait normal PSYCHIATRIC: Alert and oriented to person place and time, appropriate affect, intact judgment and insight INVASIVE LINES AND TUBES: Right sided chest tube present to waterseal, no airleak present - Allied health notes Allied health notes reviewed: nursing - Labs CBC & Chem 7: 05/09/24 07:07 05/09/24 07:07 Labs: Abnormal Lab Results - Last 24 Hours (Table) 05/08/24 05/08/24 05/09/24 Range/Units 07:43 07:43 07:07 WBC 13.4 H (3.8-10.6) k/uL RBC 4.24 L (4.30-5.90) m/uL Hgb 12.6 L (13.0-17.5) gm/dL Hct 36.5 L (39.0-53.0) % Sodium 133 L (137-145) mmol/L Chloride 96 L (98-107) mmol/L Carbon Dioxide (22-30) mmol/L BUN 6 L (9-20) mg/dL Glucose 113 H (74-99) mg/dL 05/09/24 Range/Units 07:07 WBC (3.8-10.6) k/uL RBC (4.30-5.90) m/uL Hgb (13.0-17.5) gm/dL Hct (39.0-53.0) % Sodium 136 L (137-145) mmol/L Chloride (98-107) mmol/L Carbon Dioxide 33 H (22-30) mmol/L BUN 5 L (9-20) mg/dL Glucose (74-99) mg/dL - Imaging and Cardiology Chest x-ray: report reviewed, image reviewed Assessment and Plan Assessment: Recurrent spontaneous right-sided pneumothorax, status post placement of Thora- vent by the emergency room physicians, status post right VATS with mechanical pleurodesis History of previous tobacco dependence/vaping Occasional marijuana use Plan: Chest tube discontinued. Will repeat chest x-ray in the morning, if stable may discharge to home from cardiothoracic surgery standpoint Chest tube dressing to remain in place for 48 hours, if it becomes saturated just reinforced, do not remove. After 48 hours dressing may be removed and patient may shower daily Encourage incentive spirometry use Increase activity as tolerated Pain control per current medication regimen, recommend discontinuing IV narcotics Medical management of other comorbidities per internal medicine service Discharge instructions regarding chest tube site placed on patient's discharge plan More recommendations to follow
[2024-05-09] MEDS: SENNOSIDES-DOCUSATE SODIUM 1 EACH TAB PO SCH (13:22)
[2024-05-09] MEDS: MAGNESIUM HYDROXIDE 2,400 MG/30 ML CUP PO PRN (13:22)
--- NOTE | 2024-05-09 14:18 | P.PN ---
Subjective Progress Note Date: 05/09/24 Principal diagnosis: Hospital course: Patient is a 23-year-old male with a PMH of spontaneous right-sided pneumothorax (10/2020 and 03/2021) presenting with right-sided chest pain. Patient reports he was playing a video game and felt his heart started to race. Shortly after he had a sudden onset of right-sided chest pain. Described as a sharp chest pain made worse when taking a deep breath. The chest pain is non-radiating. When asked he says the pain feels different from the last time he had a pneumothorax. Denies any trauma, fever, chills. Patient admits to dry cough but denies any hemoptysis or sputum production. Denies any abdominal pain, nausea, vomiting, diarrhea, diaphoresis, urinary symptoms. Per ED patient denies any history of sudden cardiac , ACS, CVA/TIA. Has history of smoking/vaping. EKG independently interpreted displays sinus rhythm, vent rate 63 bpm, QTc 362 CXR on admission at 1:08 AM displays moderate right-sided pneumothorax estimated at 25-30%, no new mediastinal shift Repeat CXR at 3:27 AM displays large right pneumothorax with more than 70% loss of volume, associated mild mediastinal shift to the left Repeat CXR at 4:23 AM s/p chest tube placement displays right apical pneumothorax with bilateral 10-50% loss of height, markedly decreased Troponin <0.012, CBC, coagulation, chemistry all within normal limits. 98.2 F, NC 91, RR 14, BP 109/68, O2 sat 100% on 3 L nasal cannula 05/05/24. Patient seen and examined. Denies any chest pain or shortness of breath. Thora vent in place 05/06/24 Patient seen and examined today. He reports some chest pain with coughing, as well oozing of blood from site of Thora vent insertion with coughing. 05/07/24: Patient seen and examined today. Patient received right VATS, right upper lobe wedge resection and mechanical pleurodesis yesterday. He complains of right sided chest pain and back pain with deep breathing and coughing. Chest x- ray done today shows no acute pulmonary process, stable right-sided chest tube and no pneumothorax. 05/08/24: Patient seen and examined at bedside. No acute events overnight. He notes an improvement in his chest pain. Complains of back pain on the right side. Right sided chest tube placed to waterseal. No evidence of air leak. Chest x-ray today shows small developing apical pneumothorax and right-sided chest tube remains in position. 05/09/24: Patient seen and examined today. No acute events overnight. No air leak was present for 24 hours, chest tube was removed today and chest tube dressing to remain in place for 48 hours. Patient mentions of pain in the right side of the chest and notes an improvement in the back pain. Labs today show hemoglobin 12.6, sodium 136. Review of systems: Pertinent positives and negatives as discussed in HPI, a complete review of sy stems was performed and all other systems are negative. Vitals: Signs Reviewed Physical examination: General: nontoxic, no distress, appears at stated age Derm: warm, dry, intact Head: atraumatic, normocephalic, symmetric Eyes: EOMI, anicteric sclera Mouth: no lip lesion, mucus membranes moist Cardiovascular: S1 S2 reg, no murmur Lungs: Good air entry bilaterally Abdominal: soft, non-tender to palpataion Extremities: No cyanosis, clubbing, or pedal edema. Neuro: Alert, Oriented, Gross neurological examination did not reveal any focal deficits. Psych: well appearing, appropriate affect Assessment/Plan: #.Spontaneous idiopathic pneumothorax #.Acute hypoxic respiratory failure Patient received right VATS, right upper lobe wedge resection and mechanical pleurodesis yesterday Chest x-ray today shows minimal stable right apical pneumothorax with right- sided chest tube, left lower lobe platelike atelectasis Chest tube discontinued today Clinically and hemodynamically stable Continue 0.9 normal saline at 10 mL IV twice daily Continue Tramadol 50mg PO Q6H PRN, Ketorolac 15 mg IVP Q6HR PRN, Acetaminophen 650 mg PO Q6HR PRN for pain management Encourage use of incentive spirometer Obtain Chest xray tomorrow #.Mild Hyponatremia Na 136 Monitor BMP #.Anxiety Continue Xanax 0.25 mg PO Q6HR PRN #. Constipation/Indigestion Conitnue Sennosides-Docusate 2 each PO HS and magnesium hydroxide 2400mg PO Daily PRN Continue Maalox 15 ml PO Q6HR PRN #.Heartburn Continue Calcium carbonate 1000mg PO Q4HR PRN F: 0.9 normal saline at 10ml BID E replete as required N: Regular diet A: Ambulatory DVT prophylaxis: Pneumatic compression sleeve, Enoxaparin 40 mg SQ daily GI prohpylaxis: Protonix 40 mg IV twice daily Objective - Vital Signs Vital signs: Vital Signs Temp 98.2 F 05/09/24 11:14 Pulse 76 05/09/24 11:14 Resp 16 05/09/24 11:14 BP 114/66 05/09/24 11:14 Pulse Ox 98 05/09/24 11:14 FiO2 Intake & Output 05/08/24 05/09/24 05/09/24 18:59 06:59 18:59 Intake Total 860 246 Output Total 90 20 Balance 770 -20 246 Weight 79 kg Intake: IV 30 10 Invasive Line 2 10 Invasive Line 3 20 10 Oral 830 236 Output: Chest Tube Drainage 90 20 Thora-Vent 90 20 Other: Voiding Method Toilet Toilet # Voids 2 # Bowel Movements 1 - Labs CBC & Chem 7: 05/09/24 07:07 05/09/24 07:07 Labs: Abnormal Lab Results - Last 24 Hours (Table) 05/09/24 05/09/24 Range/Units 07:07 07:07 RBC 4.24 L (4.30-5.90) m/uL Hgb 12.6 L (13.0-17.5) gm/dL Hct 36.5 L (39.0-53.0) % Sodium 136 L (137-145) mmol/L Carbon Dioxide 33 H (22-30) mmol/L BUN 5 L (9-20) mg/dL
--- NOTE | 2024-05-09 15:07 | P.PN ---
Subjective Progress Note Date: 05/09/24 23-year-old white male with a history of spontaneous pneumothorax, previously, twice, in October, in March 2021. The patient presented to the emergency department on May 04, complaining of shortness of breath, right-sided chest pain. The patient was discovered to have another right-sided pneumothorax, and a Thora vent device was placed. The patient states that he does not currently smoke. He used to smoke in the past. He does smoke marijuana from time to time. He does not vape. He was seen by surgery on his previous 2 occasions, back in 2020, once by Dr. Dolan, and once by Dr. Holcomb. Cardiothoracic surgery, has been consulted at this time. The patient is currently on 3 L of oxygen. He is getting saline at 30 cc an hour. CBC is completely normal. Coagulation studies are normal. Glucose is 102, otherwise a comprehensive metabolic profile was completely normal. Initial chest x-ray shows moderate right-sided pneumothorax. A repeat x-ray, after Thora vent placement, showed a small 10 to 15% right apical pneumothorax. The patient is seen today May 05, 2024 follow-up on the regular medical floor. He is currently resting in bed. Awake and alert in no acute distress. Continue good O2 saturations up to 100% on 3 L/min per nasal cannula. He is afebrile. Hemodynamically stable. CT of the chest reveals trace right pneumothorax. Thora vent in place Pleur-evac and continuous wall suction. No leak present currently. Sodium 140. Potassium 4.0. Bicarb 24. BUN 11. Creatinine 0.8. Glucose 96.. Working with the incentive spirometer. On 05/06/2024, the patient is being seen for a follow-up. The patient will be taken to the operating room to undergo a video-assisted thoracoscopic surgery with mechanical pleurodesis as the patient has developed recurrent spontaneous right-sided pneumothorax. This morning, the patient is on 3 days of oxygen by nasal cannula with a pulse ox of 99 to 100%. Denies having any significant shortness of breath. Hemodynamically stable. Thora vent is still present in the right chest. No other new complaints otherwise for now. Blood work from today shows a white cell count of 6.7 with a hemoglobin 12.8 and a platelet c ount of 215. Electrolytes are all within normal limits. On 05/07/2024, the patient is being seen for a follow-up. The patient is postop day #1. The patient underwent a thoracoscopic wedge resection of the right upper lobe and mechanical pleurodesis. The patient is complaining of pain across his right chest and the pain is around 8 out of 10 in severity and the patient receiving combination of Toradol, [place] and tramadol. The chest tube is in a good location there is no evidence of any air leak. The chest x-ray from today shows no evidence of any pneumothorax. The patient remains hemodyn amically stable. The WBC count is at 9.6 with a hemoglobin 13.7 and a platelet count of 217. BUN is 6 with a creatinine of 0.8 and a sodium levels at 134. No other significant events overnight. The patient is stable at this point in time. On 05/08/2024, the patient is being seen for a follow-up. The patient is postop day #2. Right-sided chest tube in place and the patient has a small right a pical pneumothorax on today's evaluation. There is no evidence of any air leak coming out of the chest tube. The patient is postop day #2 following a right upper lobe wedge resection and mechanical pleurodesis. Pain is under better control. Incentive spirometer. He is currently on Toradol, tramadol and Dilaudid for pain control. The patient's white cell count is 13.4, hemoglobin 13.7, BUN 6 mg and 0.8 and a sodium levels at 133. On 05/09/2024, the patient is being seen for a follow-up.. The right-sided chest tube has been removed today. The chest x-ray from earlier this morning showed a minimal stable right apical pneumothorax. Some atelectatic changes in the left lung base. Pain is under better control and the patient is currently on room air oxygen with a pulse ox of 98%. Denies having any specific complaints. The patient is Currently postop day #3 following a thoracoscopic right upper lobe resection and mechanical pleurodesis. No other significant events overnight. Labs show a WBC count of 7.5, hemoglobin 6 and a platelet count of 198. Electrolytes are all within normal limits. BUN is 5 with a creatinine of 0.7. Objective - Vital Signs Vital signs: Vital Signs Temp 98.2 F 05/09/24 11:14 Pulse 76 05/09/24 11:14 Resp 16 05/09/24 11:14 BP 114/66 05/09/24 11:14 Pulse Ox 98 05/09/24 11:14 FiO2 Intake & Output 05/08/24 05/09/24 05/09/24 18:59 06:59 18:59 Intake Total 860 246 Output Total 90 20 Balance 770 -20 246 Weight 79 kg Intake: IV 30 10 Invasive Line 2 10 Invasive Line 3 20 10 Oral 830 236 Output: Chest Tube Drainage 90 20 Thora-Vent 90 20 Other: Voiding Method Toilet Toilet # Voids 2 # Bowel Movements 1 - Exam GENERAL EXAM: Alert, pleasant 23-year-old male, on room air oxygen fairly comfortable in no apparent distress. HEAD: Normocephalic. EYES: Normal reaction of pupils, equal size. NOSE: Clear with pink turbinates. THROAT: No erythema or exudates. NECK: No masses, no JVD. CHEST: Right sided chest tube is in place. No evidence of any air leak. LUNGS: Equal air entry with no crackles, wheeze, rhonchi or dullness. CVS: S1 and S2 normal with no audible murmur, regular rhythm. ABDOMEN: No hepatosplenomegaly, normal bowel sounds, no guarding or rigidity. SPINE: No scoliosis or deformity SKIN: No rashes CENTRAL NERVOUS SYSTEM: No focal deficits, tone is normal in all 4 extremities. EXTREMITIES: There is no peripheral edema. No clubbing, no cyanosis. Peripheral pulses are intact. - Labs CBC & Chem 7: 05/09/24 07:07 05/09/24 07:07 Labs: Abnormal Lab Results - Last 24 Hours (Table) 05/09/24 05/09/24 Range/Units 07:07 07:07 RBC 4.24 L (4.30-5.90) m/uL Hgb 12.6 L (13.0-17.5) gm/dL Hct 36.5 L (39.0-53.0) % Sodium 136 L (137-145) mmol/L Carbon Dioxide 33 H (22-30) mmol/L BUN 5 L (9-20) mg/dL Assessment and Plan Plan: Spontaneous pneumothorax, right side, x 3. Previously, he had pneumothorax, in October and March 2024. The patient status post thoracoscopic wedge resection of the right upper lobe and the right-sided chest tube insertion and mechanical pleurodesis. Tiny right apical pneumothorax on today's chest x-ray. No evidence of any air leak. Pain is under better control. The patient is currently postop day #3. Right side chest tube has been removed. She is right-sided chest wall pain secondary to above, improved Previous history of tobacco dependence/vaping No other significant past medical history Plan: Patient currently on room air oxygen Right-sided chest tube removed Pain control Working well with the incentive spirometer Increase his activity as tolerated We will continue to follow
[2024-05-09 22:04] VITALS: RESP 16
--- NOTE | 2024-05-10 07:47 | XR ---
EXAMINATION TYPE: XR chest 2V DATE OF EXAM: 05/10/2024 6:39 AM COMPARISON: 05/09/2024 CLINICAL INDICATION: Male, 23 years old with history of post wedge right upper lobe, TECHNIQUE: XR chest 2V view(s) obtained. FINDINGS: The heart size is normal. The pulmonary vasculature is normal. The lungs are clear. Tiny residual apical pneumothorax remains present post chest tube removal IMPRESSION: 1. Tiny residual right apical pneumothorax [facility], , 05/10/2024 7:44 AM
[2024-05-10 07:58] LABS: HCT 41.1 % (39.0-53.0); HGB 13.8 gm/dL (13.0-17.5); MCHC 33.6 g/dL (31.0-37.0); MCV 86.5 fL (80.0-100.0); Mean Platelet Volume 6.8; Platelet Count 273 k/uL (150-450); RBC 4.75 m/uL (4.30-5.90); RDW 12.6 % (11.5-15.5)
[2024-05-10 08:17] LABS: African American GFR (CKD) >90 (>60 ml/min/1.73 sqM); Anion Gap 8 mmol/L; Blood Urea Nitrogen 8 mg/dL (9-20); Calcium 9.2 mg/dL (8.4-10.2); Carbon Dioxide 32 mmol/L (22-30); Chloride 98 mmol/L (98-107); Glucose 92 mg/dL (74-99); Non-African American GFR(CKD) >90 (>60 ml/min/1.73 sqM); Potassium 4.4 mmol/L (3.5-5.1); Sodium 138 mmol/L (137-145)
--- NOTE | 2024-05-10 10:27 | P.PN ---
Subjective Progress Note Date: 05/10/24 Principal diagnosis: Recurrent spontaneous right-sided pneumothorax. History of previous tobacco dependence/vaping, occasional marijuana use POD #4 right VATS, right upper lobe wedge resection, mechanical pleurodesis Patient was seen and examined in follow-up today May 10, 2024 at his bedside on the third floor cardiac stepdown unit. The patient is sitting up in bed, ea ting his breakfast, is awake, alert, oriented x 3 and is in no acute apparent distress. The patient denies any complaints of shortness of breath at this time, although is complaining of some surgical type pain to his right chest. The patient reports he has been up ambulating and tolerating well. Oxygen saturations are 97% on room air and he is achieving 2500 mL on his incentive spirometry with encouragement. Chest x-ray results reviewed. Objective - Vital Signs Vital signs: Vital Signs Temp 98.4 F 05/10/24 07:24 Pulse 89 05/10/24 07:24 Resp 16 05/10/24 07:30 BP 122/77 05/10/24 07:24 Pulse Ox 98 05/10/24 07:24 FiO2 Intake & Output 05/09/24 05/10/24 05/10/24 18:59 06:59 18:59 Intake Total 364 20 250 Balance 364 20 250 Weight 74.7 kg Intake: IV 10 20 10 0.9 10 Invasive Line 3 10 10 10 Oral 354 240 Other: Voiding Method Toilet Toilet Toilet # Voids 2 1 - Exam CONSTITUTIONAL: Appears comfortable, cooperative, no acute distress RESPIRATORY: Lungs sounds clear bilaterally. Respirations even, nonlabored. Currently on room air with oxygen saturation 97%. Able to achieve 2500 mL on incentive spirometry. Strong cough. CARDIOVASCULAR: S1, S2 present. Regular rate and rhythm, sinus rhythm on telemetry. Palpable peripheral pulses bilaterally. No edema present. No calf pain or tenderness noted GASTROINTESTINAL: Abdomen soft, nontender, nondistended. Active bowel sounds present 4 quadrants. Tolerating diet GENITOURINARY: Continues to void. INTEGUMENTARY: Skin is warm and dry, no clubbing or cyanosis is present. Right chest incisions clean, dry and intact. NEUROLOGIC: Cranial nerves II through XII intact. No focal deficits. MUSKULOSKELETAL: Able to move all extremities, strength equal bilaterally, gait normal. PSYCHIATRIC: Alert and oriented to person place and time, appropriate affect, intact judgment and insight. - Allied health notes Allied health notes reviewed: nursing - Labs CBC & Chem 7: 05/10/24 07:28 05/10/24 07:28 Labs: Abnormal Lab Results - Last 24 Hours (Table) 05/10/24 Range/Units 07:28 Carbon Dioxide 32 H (22-30) mmol/L BUN 8 L (9-20) mg/dL - Imaging and Cardiology Chest x-ray: report reviewed, image reviewed Assessment and Plan Assessment: Recurrent spontaneous right-sided pneumothorax, status post placement of Thora- vent by the emergency room physicians, status post right VATS with mechanical pleurodesis History of previous tobacco dependence/vaping Occasional marijuana use Plan: May discharge to home from cardiothoracic surgery standpoint Chest tube dressing to remain in place for 48 hours, if it becomes saturated just reinforced, do not remove. After 48 hours dressing may be removed and angel ent may shower daily. Continue to encourage use of incentive spirometry. Increase activity as tolerated. Pain control per current medication regimen. Medical management of other comorbidities per internal medicine service Discharge instructions regarding chest tube site placed on patient's discharge plan We will continue to follow the patient on an as-needed basis, please reconsult for any further questions regarding the pneumothorax. Time with Patient: Less than 30
[2024-05-10 11:07] VITALS: BP 113/59; PULSE 91; TEMP 98.3
--- NOTE | 2024-05-10 12:11 | P.PN ---
Subjective Progress Note Date: 05/10/24 23-year-old white male with a history of spontaneous pneumothorax, previously, twice, in October, in March 2021. The patient presented to the emergency department on May 04, complaining of shortness of breath, right-sided chest pain. The patient was discovered to have another right-sided pneumothorax, and a Thora vent device was placed. The patient states that he does not currently smoke. He used to smoke in the past. He does smoke marijuana from time to time. He does not vape. He was seen by surgery on his previous 2 occasions, back in 2020, once by Dr. Dolan, and once by Dr. Holcomb. Cardiothoracic surgery, has been consulted at this time. The patient is currently on 3 L of oxygen. He is getting saline at 30 cc an hour. CBC is completely normal. Coagulation studies are normal. Glucose is 102, otherwise a comprehensive metabolic profile was completely normal. Initial chest x-ray shows moderate right-sided pneumothorax. A repeat x-ray, after Thora vent placement, showed a small 10 to 15% right apical pneumothorax. The patient is seen today May 05, 2024 follow-up on the regular medical floor. He is currently resting in bed. Awake and alert in no acute distress. Continue good O2 saturations up to 100% on 3 L/min per nasal cannula. He is afebrile. Hemodynamically stable. CT of the chest reveals trace right pneumothorax. Thora vent in place Pleur-evac and continuous wall suction. No leak present currently. Sodium 140. Potassium 4.0. Bicarb 24. BUN 11. Creatinine 0.8. Glucose 96.. Working with the incentive spirometer. On 05/06/2024, the patient is being seen for a follow-up. The patient will be taken to the operating room to undergo a video-assisted thoracoscopic surgery with mechanical pleurodesis as the patient has developed recurrent spontaneous right-sided pneumothorax. This morning, the patient is on 3 days of oxygen by nasal cannula with a pulse ox of 99 to 100%. Denies having any significant shortness of breath. Hemodynamically stable. Thora vent is still present in the right chest. No other new complaints otherwise for now. Blood work from today shows a white cell count of 6.7 with a hemoglobin 12.8 and a platelet c ount of 215. Electrolytes are all within normal limits. On 05/07/2024, the patient is being seen for a follow-up. The patient is postop day #1. The patient underwent a thoracoscopic wedge resection of the right upper lobe and mechanical pleurodesis. The patient is complaining of pain across his right chest and the pain is around 8 out of 10 in severity and the patient receiving combination of Toradol, [place] and tramadol. The chest tube is in a good location there is no evidence of any air leak. The chest x-ray from today shows no evidence of any pneumothorax. The patient remains hemodyn amically stable. The WBC count is at 9.6 with a hemoglobin 13.7 and a platelet count of 217. BUN is 6 with a creatinine of 0.8 and a sodium levels at 134. No other significant events overnight. The patient is stable at this point in time. On 05/08/2024, the patient is being seen for a follow-up. The patient is postop day #2. Right-sided chest tube in place and the patient has a small right a pical pneumothorax on today's evaluation. There is no evidence of any air leak coming out of the chest tube. The patient is postop day #2 following a right upper lobe wedge resection and mechanical pleurodesis. Pain is under better control. Incentive spirometer. He is currently on Toradol, tramadol and Dilaudid for pain control. The patient's white cell count is 13.4, hemoglobin 13.7, BUN 6 mg and 0.8 and a sodium levels at 133. On 05/09/2024, the patient is being seen for a follow-up.. The right-sided chest tube has been removed today. The chest x-ray from earlier this morning showed a minimal stable right apical pneumothorax. Some atelectatic changes in the left lung base. Pain is under better control and the patient is currently on room air oxygen with a pulse ox of 98%. Denies having any specific complaints. The patient is Currently postop day #3 following a thoracoscopic right upper lobe resection and mechanical pleurodesis. No other significant events overnight. Labs show a WBC count of 7.5, hemoglobin 6 and a platelet count of 198. Electrolytes are all within normal limits. BUN is 5 with a creatinine of 0.7. 05/10/2024, the patient is postop day #4. Doing well. No specific complaints. Still having some soreness across his right lung/chest wall at the site of the surgery. Chest x-ray from today shows a very tiny apical stable pneumothorax. The patient is currently on room air oxygen. The white cell count at 7 with a heme of 13.8 and a platelet count of 273. BUN is 8 with a creatinine of 0.8 and the patient is currently on room air oxygen. He is on Lovenox for DVT prophylaxis. He is on Tylenol and Ultram for pain control. Objective - Vital Signs Vital signs: Vital Signs Temp 98.3 F 05/10/24 11:03 Pulse 91 05/10/24 11:03 Resp 16 05/10/24 11:03 BP 113/59 05/10/24 11:03 Pulse Ox 98 05/10/24 11:03 FiO2 Intake & Output 05/09/24 05/10/24 05/10/24 18:59 06:59 18:59 Intake Total 364 20 250 Balance 364 20 250 Weight 74.7 kg Intake: IV 10 20 10 0.9 10 Invasive Line 3 10 10 10 Oral 354 240 Other: Voiding Method Toilet Toilet Toilet # Voids 2 1 - Exam GENERAL EXAM: Alert, pleasant 23-year-old male, on room air oxygen fairly comfortable in no apparent distress. HEAD: Normocephalic. EYES: Normal reaction of pupils, equal size. NOSE: Clear with pink turbinates. THROAT: No erythema or exudates. NECK: No masses, no JVD. CHEST: Right sided chest tube has been removed. The patient is currently on room air oxygen. LUNGS: Equal air entry with no crackles, wheeze, rhonchi or dullness. CVS: S1 and S2 normal with no audible murmur, regular rhythm. ABDOMEN: No hepatosplenomegaly, normal bowel sounds, no guarding or rigidity. SPINE: No scoliosis or deformity SKIN: No rashes CENTRAL NERVOUS SYSTEM: No focal deficits, tone is normal in all 4 extremities. EXTREMITIES: There is no peripheral edema. No clubbing, no cyanosis. Peripheral pulses are intact. - Labs CBC & Chem 7: 05/10/24 07:28 05/10/24 07:28 Labs: Abnormal Lab Results - Last 24 Hours (Table) 05/10/24 Range/Units 07:28 Carbon Dioxide 32 H (22-30) mmol/L BUN 8 L (9-20) mg/dL Assessment and Plan Plan: Spontaneous pneumothorax, right side, x 3. Previously, he had pneumothorax, in October and March 2024. The patient status post thoracoscopic wedge resection of the right upper lobe and the right-sided chest tube insertion and mechanical pleurodesis. The patient is postop day #4. The right-sided pneumothorax has recovered and the patient has a tiny stable right apical pneumothorax in place. Currently on room air oxygen. She is right-sided chest wall pain secondary to above, improved Previous history of tobacco dependence/vaping No other significant past medical history Plan: Patient currently on room air oxygen Pain control and currently is on a combination of Ultram and Tylenol Working well with the incentive spirometer Increase his activity as tolerated We we will possibly discharge him home today to be followed up on outpatient basis
--- NOTE | 2024-05-10 12:49 | P.DS ---
Providers Date of admission: 05/04/24 03:50 Expected date of discharge: 05/10/24 Attending physician: Mariano Sheikh Consults: 05/04/24 08:24 Consult Physician Stat Consulting Provider: Melanie Maravilla Consult Reason/Comments: pneumothorax with thoravent Do you want consulting provider notified?: Yes 05/04/24 08:25 Consult Physician Stat Consulting Provider: Chad Dolan Consult Reason/Comments: pneumothorax with thoravent Do you want consulting provider notified?: Yes Primary care physician: Stated None Hospital Course: Discharge diagnosis: Spontaneous idiopathic pneumothorax Acute hypoxic respiratory failure Mild Hyponatremia Anxiety Constipation/Indigestion Heartburn Hospital Course: Patient is a 23-year-old male with a PMH of spontaneous right-sided pneumothorax (10/2020 and 03/2021) presenting with right-sided chest pain. Patient reports he was playing a video game and felt his heart started to race. Shortly after he had a sudden onset of right-sided chest pain. Described as a sharp chest pain made worse when taking a deep breath. The chest pain is non- radiating. When asked he says the pain feels different from the last time he had a pneumothorax. Denies any trauma, fever, chills. Patient admits to dry cough but denies any hemoptysis or sputum production. Denies any abdominal pain , nausea, vomiting, diarrhea, diaphoresis, urinary symptoms. Has history of smoking/vaping. EKG independently interpreted displays sinus rhythm, vent rate 63 bpm, QTc 362. CXR on admission at 1:08 AM displays moderate right-sided pneumothorax estimated at 25-30%, no new mediastinal shift. Repeat CXR at 3:27 AM displays large right pneumothorax with more than 70% loss of volume, associated mild mediastinal shift to the left. Repeat CXR at 4:23 AM s/p chest tube placement displays right apical pneumothorax with bilateral 10-50% loss of height, markedly decreased. Troponin <0.012, CBC, coagulation, chemistry all within normal limits. Vitals on admission T 98.2 F, MO 91, RR 14, BP 109/68, O2 sat 100% on 3 L nasal cannula At that point, right sided Thoravent was placed in the ED. He was also prescribed ketorolac, morphine, propofol, lidocaine, acetaminophen, Dilaudid, tramadol, Pepcid, Tums, Maalox in the ED. Pulmonology and cardiothoracic surgery were consulted. He was put on 3 L of supplemental oxygen and was getting the saline at 30 cc an [address] A CT scan was obtained that showed trace left pneumothorax with thoracotomy tube in place. He was encouraged to use incentive spirometer. The patient was made n.p.o. overnight and the next day he received video-assisted thoracoscopic surgery with mechanical pleurodesis. The next day his chest tube was placed to waterseal. No air leak was found for 24 hours and the chest tube was discontinued and chest tube dressing was placed for 48 hours. Today the patient feels good and does not have any new complaints. Patient will be discharged today and is given discharge instructions regarding chest tube site. Chest tube dressing to remain in place for 48 hours, if it becomes saturated just reinforced, do not remove. After 48 hours dressing may be removed and patient may shower daily. Additional discharge instructions: 1. No driving for 1 week, or until physician gives their ok. 2. No lifting, pushing, or pulling more than 10 pounds for 1 weeks. The physician will advise of any restriction changes. 3. Continue pain control per as needed orders. Alternate acetaminophen (Tylenol) and ibuprofen (Motrin/Advil) for pain. 4. Continue with incentive spirometry and splinting until otherwise directed by the physician. 5. Leave chest tube dressing for 48 hours (Monday). After that, remove all dressings and shower daily. 6. Routine incision care. No powders, lotions, ointments on incisions. 7. Please call surgeon/INDIAN NANNY for temp greater than 101 F or purulent drainage from incisions. 8. Smoking cessation counseling and program information provided. Quitting smoking is the most important step you can take to improve your health. For additional information and assistance to quit smoking, please call the [place] tobacco quit line (0-907-JECS-NOW/ ) or online: https://www.[email or web address]/[facility]/zksg-qx-mxxemxo/chronicdiseases/tobacco/how-to-qu it-tobacco Patient is advised to use incentive spirometer. Patient is advised to follow-up with Cardiothoracic Surgery and PCP in 1 week. Patient seen at bedside today and is feeling good and excited about discharge. Vital signs are reviewed and stable General: nontoxic, no distress, appears at stated age Derm: warm, dry, intact Head: atraumatic, normocephalic, symmetric Eyes: EOMI, anicteric sclera Mouth: no lip lesion, mucus membranes moist Cardiovascular: S1 S2 reg, no murmur Lungs: Good air entry bilaterally Abdominal: soft, non-tender to palpataion Extremities: No cyanosis, clubbing, or pedal edema. Neuro: Alert, Oriented, Gross neurological examination did not reveal any focal deficits. Psych: well appearing, appropriate affect A total of 30 minutes of time were spent preparing this complex discharge summary. Patient was discharged on 05/10/24 at []. Patient Condition at Discharge: Stable Plan - Discharge Summary New Discharge Prescriptions: No Action No Known Home Medications Discharge Medication List No Known Home Medications 05/04/24 [History] Follow up Appointment(s)/Referral(s): Enma Duenas, NPC [Nurse Practitioner] - 1 Week (Come in for incision check, in the surgeon's office behind the hospital in [facility], [address]. Office phone number is ) [facility] [NON-STAFF] - 1 Week Activity/Diet/Wound Care/Special Instructions: DISCHARGE INSTRUCTIONS: 1. No driving for 1 week, or until physician gives their ok. 2. No lifting, pushing, or pulling more than 10 pounds for 1 weeks. The physician will advise of any restriction changes. 3. Continue pain control per as needed orders. Alternate acetaminophen (Tylenol) and ibuprofen (Motrin/Advil) for pain. 4. Continue with incentive spirometry and splinting until otherwise directed by the physician. 5. Leave chest tube dressing for 48 hours (Monday). After that, remove all dressings and shower daily. 6. Routine incision care. No powders, lotions, ointments on incisions. 7. Please call surgeon/INDIAN NANNY for temp greater than 101 F or purulent drainage from incisions. 8. Smoking cessation counseling and program information provided. Quitting smoking is the most important step you can take to improve your health. For additional information and assistance to quit smoking, please call the [place] tobacco quit line (8-735-NZBT-NOW/ ) or online: [email or web address]/[email or web address]/dppl-kg-cdhcuzx/chronicdiseases/tobacco/how -sd-ahbc-drvbwnm Discharge Disposition: HOME SELF-CARE
== END 2024-05-10 14:07 | disposition home or self-care (01) | DRG 121 ==
LOC: EC 00:14 → 4SSUR 03:50 → 3SCARD 05-06 15:46
PROVIDERS: ADMIT Internal Medicine; ATTEND Internal Medicine
PROC: 0W9930Z Drainage of Right Pleural Cavity with Drainage Device, Percutaneous Approach (ICD-10-PCS; 2024-05-04)
PROC: 0B5N4ZZ Destruction of Right Pleura, Percutaneous Endoscopic Approach (ICD-10-PCS; principal; 2024-05-06 13:10)
PROC: 0BBC4ZZ Excision of Right Upper Lung Lobe, Percutaneous Endoscopic Approach (ICD-10-PCS; principal; 2024-05-06 13:10)
DX: J93.83 Other pneumothorax (principal); K30 Functional dyspepsia; R93.89 Abnormal findings on diagnostic imaging of other specified body structures; J96.01 Acute respiratory failure with hypoxia; K59.00 Constipation, unspecified; F41.9 Anxiety disorder, unspecified; E87.1 Hypo-osmolality and hyponatremia; Z87.891 Personal history of nicotine dependence; Z28.21 Immunization not carried out because of patient refusal
CPT/HCPCS: 31500; 36415; 71045; 71046; 71250; 80048; 80053; 83735; 84484; 85025; 85027; 85610; 85730; 88307; 93005; 94760; 96374; 96375; 99152; 99285

== ENCOUNTER 2024-06-06 13:22 | Emergency (ER) | payer OTHER ==
[2024-06-06 13:34] VITALS: RESP 18
--- NOTE | 2024-06-06 13:37 | ED ---
General Adult HPI - General Chief complaint: Recheck/Abnormal Lab/Rx Stated complaint: Post-op pain Time Seen by Provider: 06/06/24 13:28 Source: patient, RN notes reviewed Mode of arrival: ambulatory Limitations: no limitations - History of Present Illness Initial comments: 23-year-old male presents emergency department with chief complaint of right patrick g pain. Patient had a VATS procedure at the beginning of May by Dr. Dolan. Patient recurrent pneumothorax. He states that he was coughing yesterday felt something pop and states he is having some discomfort he is concerned about possible pneumonia. Patient denies any congestion fever chills no other complaints. - Related Data Home Medications Medication Instructions Recorded Confirmed No Known Home Medications 05/04/24 05/04/24 Allergies Allergy/AdvReac Type Severity Reaction Status Date / Time No Known Allergies Allergy Verified 06/06/24 13:28 Review of Systems ROS Statement: Those systems with pertinent positive or pertinent negative responses have been documented in the HPI. ROS Other: All systems not noted in ROS Statement are negative. Past Medical History Past Medical History: No Reported History Additional Past Medical History / Comment(s): spontaneous right sided pneumothorax 10/2020, 03/2021 History of Any Multi-Drug Resistant Organisms: None Reported Past Surgical History: Appendectomy Past Anesthesia/Blood Transfusion Reactions: No Reported Reaction Past Psychological History: No Psychological Hx Reported Smoking Status: Former smoker Past Alcohol Use History: Occasional Past Drug Use History: Marijuana - Past Family History Mother Family Medical History: Unable to Obtain General Exam Limitations: no limitations General appearance: alert, in no apparent distress Head exam: Present: atraumatic, normocephalic, normal inspection Neck exam: Present: normal inspection. Absent: tenderness, meningismus, lymphadenopathy Respiratory exam: Present: normal lung sounds bilaterally, chest wall tenderness. Absent: respiratory distress, wheezes, rales, rhonchi, stridor Cardiovascular Exam: Present: regular rate, normal rhythm, normal heart sounds. Absent: systolic murmur, diastolic murmur, rubs, gallop, clicks GI/Abdominal exam: Present: soft, normal bowel sounds. Absent: distended, tenderness, guarding, rebound, rigid Course Vital Signs 06/06/24 06/06/24 13:24 13:34 Temperature 98.1 F Pulse Rate 76 Respiratory 17 18 Rate Blood Pressure 122/87 O2 Sat by Pulse 99 Oximetry Medical Decision Making - Medical Decision Making Was pt. sent in by a medical professional or institution (, PA, DOUGH MIXER HELPER, urgent c are, hospital, or senior care...) When possible be specific @ -No Did you speak to anyone other than the patient for history (EMS, parent, family, police, friend...)? What history was obtained from this source @ -No Did you review nursing and triage notes (agree or disagree)? Why? @ -I reviewed and agree with nursing and triage notes Were old charts reviewed (outside hosp., previous admission, EMS record, old EKG, old radiological studies, urgent care reports/EKG's, senior care records)? Report findings @ -No old charts were reviewed Differential Diagnosis (chest pain, altered mental status, abdominal pain women, abdominal pain men, vaginal bleeding, weakness, fever, dyspnea, syncope, headache, dizziness, GI bleed, back pain, seizure, CVA, palpatations, mental health, musculoskeletal)? @ -Differential Chest Pain: Stable Angina, Unstable Angina, STEMI, NSTEMI Aortic Dissection, Pneumothorax, Musculoskeletal, Esophageal Spasm GERD, Cholecystitis, Pancreatitis, Zoster, this is not meant to be an all-inclusive list. EKG interpreted by me (3pts min.). @ -None X-rays interpreted by me (1pt min.). @ -X-ray shows small apical pneumo consistent with prior CT interpreted by me (1pt min.). @ -None done U/S interpreted by me (1pt. min.). @ -None done What testing was considered but not performed or refused? (CT, X-rays, U/S, labs)? Why? @ -None What meds were considered but not given or refused? Why? @ -None Did you discuss the management of the patient with other professionals (professionals i.e. , DAVID, DOUGH MIXER HELPER, lab, RT, psych nurse, social media editor, production lapping machine operator, teacher, control officer, comp field case manager)? Give summary @ -Discussed the case with Enma Duenas on-call for cardiothoracic reviewed x-ray patient is stable for follow-up outpatient no changes Was smoking cessation discussed for >3mins.? @ -No Was critical care preformed (if so, how long)? @ -No Were there social determinants of health that impacted care today? How? (Homelessness, low income, unemployed, alcoholism, drug addiction, transportation, low edu. Level, literacy, decrease access to med. care, [facility]ci, rehab)? @ -No Was there de-escalation of care discussed even if they declined (Discuss DNR or withdrawal of care, Hospice)? DNR status @ -No What co-morbidities impacted this encounter? (DM, HTN, Smoking, COPD, CAD, Cancer, CVA, ARF, Chemo, Hep., AIDS, mental health diagnosis, sleep apnea, morbid obesity)? @ -None Was patient admitted / discharged? Hospital course, mention meds given and route, prescriptions, significant lab abnormalities, going to OR and other pertinent info. @ -Charge patient had chest wall pain after coughing he had a recent VATS procedure Case discussed with cardiothoracic reviewed imaging patient stable for discharge Undiagnosed new problem with uncertain prognosis? @ -No Drug Therapy requiring intensive monitoring for toxicity (Heparin, Nitro, Insulin, Cardizem)? @ -No Were any procedures done? @ -No Diagnosis/symptom? @ -Chest wall pain Acute, or Chronic, or Acute on Chronic? @ -Acute Uncomplicated (without systemic symptoms) or Complicated (systemic symptoms)? @ -Uncomplicated Side effects of treatment? @ -No Exacerbation, Progression, or Severe Exacerbation? @ -No Poses a threat to life or bodily function? How? (Chest pain, [place], [place], pneumonia, PE, COPD, DKA, ARF, appy, cholecystitis, CVA, Diverticulitis, Homicidal, Suicidal, threat to staff... and all critical care pts) @ -No Disposition Clinical Impression: Chest wall pain Disposition: HOME SELF-CARE Condition: Stable Instructions (If sedation given, give patient instructions): Chest Pain (ED) Additional Instructions: Please return to the Emergency Department if symptoms worsen or any other concerns. Is patient prescribed a controlled substance at d/c from ED?: No Referrals: None,Stated [Primary Care Provider] - 1-2 days Time of Disposition: 15:09
--- NOTE | 2024-06-06 13:55 | XR ---
EXAMINATION TYPE: XR chest 2V DATE OF EXAM: 06/06/2024 1:46 PM COMPARISON: Chest radiographs from 05/10/2024 TECHNIQUE: XR chest 2V Frontal and lateral views of the chest. CLINICAL INDICATION:Male, 23 years old with history of pain; FINDINGS: Lungs/Pleura: No pleural effusion or focal consolidation. Stable trace right apical pneumothorax. Pulmonary vascularity: Unremarkable. Heart/mediastinum: Cardiomediastinal silhouette is unremarkable. Musculoskeletal: No acute osseous pathology. IMPRESSION: Stable trace right apical pneumothorax from prior radiograph 05/10/2024. [facility], , 06/06/2024 1:53 PM
[2024-06-06 15:20] VITALS: BP 112/68; PULSE 64; TEMP 98
[2024-06-06] MEDS: ACET/COD 300 MG/30 MG STARTER PACK 6 TAB BTL PO STA (15:29)
== END 2024-06-06 15:35 | disposition home or self-care (01) ==
LOC: EC 13:22
DX: R07.89 Other chest pain (principal); Z87.891 Personal history of nicotine dependence
CPT/HCPCS: 71046; 99283